=== PATIENT | female | born 1940 | race Caucasian/White ===

== ENCOUNTER 2021-10-25 09:12 | Inpatient (IN) | payer OTHER, BC ==
[2021-10-25] VITALS (11 sets, daily range): BP systolic 84–116; BP diastolic 41–61
[~2021-10-25] VITALS: Ht 154.9 cm; Wt 57.2 kg
--- NOTE | 2021-10-25 09:12 | NUR ---
(7444) RECEIVED FROM EMT TRANSFERRED FROM [facility] TO [facility] ER-1 CONTINUED WITH SUPPLEMENTAL OXYGEN AT 15 LPM VIA NON REBEREATHER ASSESSMENT DONE
--- NOTE | 2021-10-25 09:15 | NUR ---
81 y/o F BIBA from [facility] for increased ALOC, productive cough and SOB. Per EMS, patient tested + COVID 1 week ago and baseline O2 at 88%, placed on 15L via non-rebreather with improvement to 95%. Patient presented hypotensive 88/64 and received 200mL NS 0.9% on scene with improvement to BP. Upon arrival, patient with BP 116/41. EMS BS 146. EMS states baseline GCS 14 but responsive to painful stimuli since this morning. Patient with diaper, full code / taken off hospice today. Lung landis rhonchi. Unable to obtain remaining assessment d/t presentation. PMH: dementia, renal failure, HTN hypothyroidis, HLD, Alzheimers, Meds: see list A: sulfa, depakote, halperidol
--- NOTE | 2021-10-25 09:18 | NUR ---
BRODIE BURNS ERMStephen HHN THERAPY WITH ALBUTEROL 5mg AND ATROVENT 0.5mg
--- NOTE | 2021-10-25 09:20 | NUR ---
RT at bedside for neb tx
--- NOTE | 2021-10-25 09:23 | NUR ---
HHN THERAPY AND RESPIRATORY DRUGS GIVEN ORDERED
[2021-10-25] MEDS ORDERED: NACL 0.9% 1,000 ML IV ONE ×2 (09:25→11:10)
[2021-10-25] MEDS ORDERED: IPRATROPIUM 0.02% 0.5 MG/2.5 ML NEBU INH ONE (09:25)
--- NOTE | 2021-10-25 09:25 | NUR ---
ENDORSED BEDSIDE REPORT TO [facility] RN FOR CONTINUITY OF CARE. VSS. NO S/S ACUTE DISTRESS AT THIS TIME.
--- NOTE | 2021-10-25 09:33 | NUR ---
RAD at bedside
[2021-10-25] MEDS ORDERED: ALBUTEROL 0.083% 2.5 MG/3 ML NEBU INH ONE (09:35)
[2021-10-25] MEDS ORDERED: PIPERACILLIN/TAZOBACTAM 3.375 GM in DEXTROSE 5% 50 ML IV ONE (10:00)
--- NOTE | 2021-10-25 10:00 | NUR ---
Lab at bedside
--- NOTE | 2021-10-25 10:03 | NUR ---
EMT at bedside for EKG
--- NOTE | 2021-10-25 10:04 | NUR ---
RSV, influenza, COVID dago swab collected, handed to CPT Wilman at ER bedside
[2021-10-25] MEDS ORDERED: PIPERACILLIN/TAZOBACTAM 3.375 GM VIAL IV ONE (10:48)
--- NOTE | 2021-10-25 11:10 | NUR ---
Family at bedside
--- NOTE | 2021-10-25 11:10 | NUR ---
Daughter, Bessy [phone] responsible constitution party.
[2021-10-25 11:14] LABS: ALBUMIN 2.5 g/dL (3.4-5.0); ANION GAP 22.2 (8-16); ASPARTATE AMINOTRANSFERASE 86 U/L (15-37); CARBON DIOXIDE 21.7 mmol/L (21-32); CHLORIDE 109 mmol/L (98-107); GLUCOSE 115 mg/dL (74-106); POTASSIUM 4.9 mmol/L (3.5-5.1); SODIUM SERUM 148 mmol/L (136-145); TOTAL BILIRUBIN 0.5 mg/dL (0.0-1.0)
[2021-10-25 11:17] LABS: LACTATE DEHYDROGENASE 253 U/L (81-234)
[2021-10-25 11:22] LABS: RSV NEGATIVE (NEGATIVE)
[2021-10-25 11:24] LABS: CREATININE 5.9 mg/dL (0.6-1.3); UREA NITROGEN, BLOOD 140 mg/dL (7-18)
[2021-10-25] MEDS ORDERED: ACETAMINOPHEN 160 MG/5 ML UDC PO ONE (11:35)
[2021-10-25] MEDS ORDERED: OSELTAMIVIR PHOSPHATE 75 MG CAP PO ONE (11:35)
--- NOTE | 2021-10-25 11:40 | NUR ---
Hold PO meds d/t aspiration risk per Dr. Yoon
[2021-10-25 11:56] LABS: PROTHROMBIN TIME 9.3 secs (10.8-13.4)
[2021-10-25 12:17] LABS: BASOPHILS # (AUTO) 0.1 K/uL (0.00-0.22); BASOPHILS % (AUTO) 0.3 % (0.0-2.0); HEMATOCRIT 34.5 % (36-48); LYMPHOCYTES # (AUTO) 6.7 K/uL (2.5-16.5); LYMPHOCYTES % (AUTO) 15.2 % (20.5-51.1); MEAN CORPUSCULAR HEMOGLOBIN 30 pg (27-31); MEAN CORPUSCULAR HGB CONC 32 g/dL (33-37); MEAN CORPUSCULAR VOLUME 93.5 fL (80-94); MONOCYTES # (AUTO) 8.4 K/uL (0.8-1.0); MONOCYTES % (AUTO) 19.2 % (1.7-9.3); NEUTROPHILS # (AUTO) 28.6 K/uL (1.8-7.7); NEUTROPHILS % (AUTO) 65.3 % (42.2-75.2); PLATELET COUNT (AUTO) 165 K/uL (140-450); RED BLOOD CELL COUNT(AUTO) 3.69 MIL/uL (4.20-5.40)
[2021-10-25] MEDS ORDERED: guaiFENesin DM 200/20 MG-10 ML 10 ML UDC PO PRN (12:25)
[2021-10-25] MEDS ORDERED: KETOROLAC 15 MG/ML VIAL IVP ONE (12:25)
[2021-10-25] MEDS ORDERED: ONDANSETRON 8 MG in NACL 0.9% 50 ML IV PRN (12:25)
[2021-10-25] MEDS ORDERED: ONDANSETRON 4 MG/2 ML VIAL IM/IVP PRN (12:25)
[2021-10-25] MEDS ORDERED: KCL 20 MEQ/WATER INJ PREMIX 200 ML IV PRN (12:25)
[2021-10-25] MEDS ORDERED: VANCOMYCIN PER PHARMACY MC PRN (12:45)
--- NOTE | 2021-10-25 13:01 | NUR ---
Dr. Quintero is evaluating patient at bedside.
[2021-10-25] MEDS ORDERED: NOREPINEPHRINE 4 MG in DEXTROSE 5% 250 ML IV PRN (13:05)
--- NOTE | 2021-10-25 13:15 | NUR ---
# 16 FR Stone catheter with 10 ml utilizing sterile technique. Immediate return of 75ml yellow/clear urine noted. Bedside drainage bag placed below level of bladder. Urine sample collected and sent to lab. Pt tolerated procedure well.
[2021-10-25] MEDS ORDERED: NOREPINEPHRINE 4 MG/4 ML VIAL IV ONE (13:18)
[2021-10-25 13:24] LABS: C-REACTIVE PROTEIN QUANT 5.2 mg/dL (0.0-0.9)
--- NOTE | 2021-10-25 13:25 | NUR ---
Levophed initiated @ 2mcg/min BP 80/35.
--- NOTE | 2021-10-25 13:27 | NUR ---
1327 column for Levophed spreadsheet vital signs entered in error. Levophed 4mg initiated @ 1325 @ 2mcg/min.
--- NOTE | 2021-10-25 13:29 | NUR ---
Lab at bedside
[2021-10-25 13:35] LABS: APPEARANCE,URINE HAZY (CLEAR); BILIRUBIN,URINE 1+ (NEGATIVE); BLOOD, URINE NEGATIVE (NEGATIVE); COLOR,URINE YELLOW (YELLOW); LEUKOCYTE ESTERASE ,URINE NEGATIVE (NEGATIVE); NITRITE, URINE NEGATIVE (NEGATIVE); UGLUCOSE NEGATIVE (NEGATIVE)
[2021-10-25 13:41] LABS: WHITE BLOOD COUNT (AUTO) 43.8 K/uL (4.8-10.8)
--- NOTE | 2021-10-25 13:42 | NUR ---
Dr. Yoon is at bedside for central line placement
[2021-10-25] MEDS ORDERED: VANCOMYCIN 1,000 MG in DEXTROSE 5% 250 ML IV SCH (14:00)
--- NOTE | 2021-10-25 14:05 | NUR ---
BP 91/43 MAP 59 HR 72 SpO2 98% on 15L via NRB RR 32 with Levophed 10mcg/min.
[2021-10-25 14:14] LABS: CALCIUM OXALATE CRYSTALS,UR None Seen /HPF (None Seen); RBC,URINE NONE SEEN /HPF (0-5); TRICHOMONAS,URINE None Seen /HPF (None Seen); YEAST,URINE None Seen /HPF (None Seen)
--- NOTE | 2021-10-25 14:14 | NUR ---
Per Dr. Yoon, central line placement OK to use.
[2021-10-25 14:15] LABS: COARSE GRANULAR CASTS,URINE None Seen /LPF (None Seen); FINE GRANULAR CASTS,URINE None Seen /LPF (None Seen); HYALINE CASTS, URINE None Seen /LPF (None Seen); OTHER CASTS, URINE None Seen /LPF (None Seen); OTHER CRYSTALS,URINE None Seen /HPF (None Seen); RED BLOOD CELL CASTS,URINE None Seen /LPF (None Seen); TRIPLE PHOSPHATE CRYSTAL,UR None Seen /HPF (None Seen); URIC ACID CRYSTALS,URINE None Seen /HPF (None Seen); URINE AMORPHOUS URATE 2+ /HPF (None Seen); WAXY CASTS,URINE None Seen /LPF (None Seen)
--- NOTE | 2021-10-25 14:39 | NUR ---
BRODIE BURT; HIGH FLOW NASAL CANNULA; KEEEP SATURATION GREATER THAN 90%; HHN DUONEB Q6 AND Q4 PRN SOB
[2021-10-25] MEDS ORDERED: ALBUTEROL SULFATE/IPRATROPIU 3 ML SOL IH PRN (14:45)
--- NOTE | 2021-10-25 14:45 | NUR ---
Dr. Rosas at bedside. made aware of holding PO meds d/t aspiration risk per Dr. Yoon. Dr. Rosas states to give PO medications; ERMD made aware and will see if pt tolerate.
[2021-10-25] MEDS ORDERED: HALO1TAB99 PO (14:59)
[2021-10-25] MEDS ORDERED: LORA10TA19 PO (14:59)
[2021-10-25] MEDS ORDERED: DONE5TAB6 PO (14:59)
[2021-10-25] MEDS ORDERED: MELO-176 PO (14:59)
[2021-10-25] MEDS ORDERED: FURO-572 PO (14:59)
[2021-10-25] MEDS ORDERED: PROC-62 PO (14:59)
[2021-10-25] MEDS ORDERED: QUET25TA PO (14:59)
[2021-10-25] MEDS ORDERED: MIRT-91 PO (14:59)
[2021-10-25] MEDS ORDERED: SIMV-31 PO (14:59)
[2021-10-25] MEDS ORDERED: CARV6.25 PO (14:59)
[2021-10-25] MEDS ORDERED: LEVO0.0512 PO (14:59)
[2021-10-25] MEDS ORDERED: ZOLP5TAB1 PO (14:59)
[2021-10-25] MEDS: DEXAMETHASONE 4 MG/ML VIAL IVP SCH (15:01)
[2021-10-25] MEDS ORDERED: HYOS-83 PO (15:01)
--- NOTE | 2021-10-25 15:32 | NUR ---
Bedside report given to TAYLOR Valerio.
--- NOTE | 2021-10-25 15:34 | NUR ---
Patient will be admitted to care of Dr. Quintero. Admited to ICU. Will go to room ICU-8. Belongings list completed. Report to TAYLOR Valerio.
--- NOTE | 2021-10-25 15:35 | NUR ---
RECEIVED REPORT FROM ED RNFLORENCIO. PT TRANSFERRED TO ICU BED 8 WITHOUT INCIDENT. ATTACHED TO BEDSIDE MONITOR. PT PRESENTS WITH A RIGHT FEMORAL TRIPLE LUMEN CATHETER INFUSING LEVOPHED AT 16MCG AND VANCOMYCIN AND INDWELLING PARIKH CATHETER. PT HAS BEEN MADE COMFORTABLE IN BED WITH NEW GOWN AND SHEETS PROVIDED.
--- NOTE | 2021-10-25 16:00 | NUR ---
REPORT GIVEN TO TAYLOR AUGUSTINE. ALL CARE TRANSFERRED.
--- NOTE | 2021-10-25 16:00 | NUR ---
RECEIVED REPORT FROM RELL VAZQUEZ FOR CONTINUITY OF CARE.
[2021-10-25] MEDS ORDERED: PIPERACILLIN/TAZOBACTAM 3.375 GM in DEXTROSE 5% 50 ML IV SCH (18:00)
[2021-10-25] MEDS: NOREPINEPHRINE 16 MG in DEXTROSE 5% 250 ML IV PRN (18:25)
--- NOTE | 2021-10-25 18:25 | NUR ---
ADMINISTERED 16MG CONC LEVOPHED BAG AT DOSE RATE OF 20 MCG/MIN, SHANNON YIN RN. WILL CONTINUE TO CLOSELY MONITOR SBP AND MAP.
[2021-10-25] MEDS ORDERED: VASOPRESSIN 20 UNITS in NACL 0.9% 250 ML IV SCH (18:30)
[2021-10-25] MEDS: ALBUTEROL SULFATE/IPRATROPIU 3 ML SOL IH SCH (20:04)
[2021-10-25] MEDS: PIPERACILLIN/TAZOBACTAM 2.25 GM in DEXTROSE 5% 50 ML IV SCH (21:00)
[2021-10-26] VITALS (24 sets, daily range): BP systolic 96–145; BP diastolic 33–89
[2021-10-26] MEDS: ALBUTEROL SULFATE/IPRATROPIU 3 ML SOL IH SCH ×4 (00:39→19:53)
--- NOTE | 2021-10-26 00:54 | NUR ---
PATIENT NOT ALERT SLEEPY CUBAN SPEAKING PATIENT AWAKABLE WHEN TURN. HAS HI FLOW 90% SAT 98% LUNGS DIMINISH .PATIENT NPOEXCEPT MEDS. SINUS ON MONITOR. HAS LEVOPHED INFUSING THROUGH FEMORAL LINE RIGHT. 22 MCG/MIN 98.4 HAS F/C DRAINING DEREK URINE NO DISTRESS AT THIS TIME. PATIENT HAS WRIST RESTRAINTS ON TO BR RENEWED 10/26/21 AT 1600.
[2021-10-26] MEDS ORDERED: PIPERACILLIN/TAZOBACTAM 2.25 GM VIAL IV ONE (04:50)
[2021-10-26] MEDS: PIPERACILLIN/TAZOBACTAM 2.25 GM in DEXTROSE 5% 50 ML IV SCH ×3 (05:00→21:00)
[2021-10-26 05:36] LABS: BASOPHILS # (AUTO) 0.1 K/uL (0.00-0.22); BASOPHILS % (AUTO) 0.1 % (0.0-2.0); EOSINOPHILS # (AUTO) 0.2 K/uL (0-0.4); EOSINOPHILS % (AUTO) 0.3 % (0.0-4.0); HEMATOCRIT 32.8 % (36-48); HEMOGLOBIN 10.4 g/dL (12.0-16.0); LYMPHOCYTES # (AUTO) 14.2 K/uL (2.5-16.5); LYMPHOCYTES % (AUTO) 23.1 % (20.5-51.1); MEAN CORPUSCULAR HEMOGLOBIN 30 pg (27-31); MEAN CORPUSCULAR HGB CONC 32 g/dL (33-37); MEAN CORPUSCULAR VOLUME 93.5 fL (80-94); MONOCYTES # (AUTO) 6.6 K/uL (0.8-1.0); MONOCYTES % (AUTO) 10.8 % (1.7-9.3); NEUTROPHILS # (AUTO) 40.5 K/uL (1.8-7.7); NEUTROPHILS % (AUTO) 65.7 % (42.2-75.2); PLATELET COUNT (AUTO) 190 K/uL (140-450); RED BLOOD CELL COUNT(AUTO) 3.51 MIL/uL (4.20-5.40); RED CELL DISTRIBUTION WIDTH 13.1 % (11.6-13.7)
[2021-10-26 05:41] LABS: ANION GAP 20.7 (8-16); CARBON DIOXIDE 21.2 mmol/L (21-32); CHLORIDE 109 mmol/L (98-107); GLUCOSE 204 mg/dL (74-106); POTASSIUM 4.9 mmol/L (3.5-5.1); SODIUM SERUM 146 mmol/L (136-145)
[2021-10-26 05:53] LABS: WHITE BLOOD COUNT (AUTO) 61.6 K/uL (4.8-10.8)
[2021-10-26 05:59] LABS: CREATININE 5.7 mg/dL (0.6-1.3); UREA NITROGEN, BLOOD 140 mg/dL (7-18)
--- NOTE | 2021-10-26 07:10 | NUR ---
RECEIVED PT ALERT AND ORIENTED X1, SOFT SPOKEN. ON HIGH FLOW NASAL CANNULA 20L 90%. SINUS RHYTHM ON MONITOR. ACTIVE BOWEL SOUNDS. PARIKH CATHETER INTACT AND DRAINING TO BSD. CENTRAL LINE ON RIGHT FEMORAL TRIPLE LUMEN INTACT AND PATENT INFUSING LEVOPHED @16MCG/MIN, AND NS @TKO. BILAT SOFT WRIST RESTRAINTS IN PLACE. SAFETY PRECAUTIONS IN PLACE.
--- NOTE | 2021-10-26 08:08 | NUR ---
RT AT BEDSIDE. DECREASED HIGH FLOW TO 20L 65%. O2 SAT 96%.
[2021-10-26] MEDS: NOREPINEPHRINE 16 MG in DEXTROSE 5% 250 ML IV PRN (08:44)
--- NOTE | 2021-10-26 08:45 | NUR ---
SEEN AND EXAMINED BY DR. BURT. DAUGHTER AT BEDSIDE. ALL QUESTIONS ANSWERED.
[2021-10-26] MEDS: PANTOPRAZOLE 40 MG INJ VIAL IVP SCH (08:57)
[2021-10-26] MEDS: DEXAMETHASONE 4 MG/ML VIAL IVP SCH (08:59)
[2021-10-26] MEDS ORDERED: VANCOMYCIN 750 MG in DEXTROSE 5% 250 ML IV SCH (09:00)
--- NOTE | 2021-10-26 09:07 | NUR ---
PATIENT HAS BEEN SCREENED AND CATEGORIZED HIGH NUTRITION RISK. PATIENT WILL BE SEEN WITHIN 1-2 DAYS OF ADMISSION. REFERRAL RECEIVED FOR DYSPHAGIA IGNACIA COLON RD
--- NOTE | 2021-10-26 09:30 | NUR ---
SEEN AND EXAMINED BY DR. CULVER. NO NEW ORDERS.
[2021-10-26] MEDS: OSELTAMIVIR PHOSPHATE 30 MG CAP PO SCH (09:45)
--- NOTE | 2021-10-26 13:22 | NUR ---
P.T. NOTES P.T. EVAL COMPLETED; REFER TO EVAL FOR DETAILS.
--- NOTE | 2021-10-26 14:30 | NUR ---
SEEN AND EXAMINED BY DR. CHAPMAN. NO NEW ORDERS.
--- NOTE | 2021-10-26 16:18 | NUR ---
DC PLANNIN YRS OLD FEMALE PATIENT WAS ADMITTED FROM HOME WITH A DX OF SEPSIS. PATIENT HAS A HX OF DEMENTIA RENAL FAILURE HYPOTHYROIDISM AND HLD. CXR SHOWED RIGHT BASAL PNEUMONIA OR EDEMA. RAPID COVID TEST POSITIVE INFLUENZA POSITIVE. WBC 43.8, 61.6. ON HIGH FLOW 20L FIO2 65%. URINE AND SPUTUM CULTURE PENDING. ADMINISTERED IVF, LEVOPHED DRIP , ZOSYN AND VANCO IV ABX. CONSULTED WITH NEPHRO PULMO AND ID. DC PLAN PER PT RESPOND TO THE TREATMENT. CM TO FOLLOW Addendum: 10/30/21 at 1039 by Eulalia Foley RN DC PLANNING: WBC UP TRENDING HIGHER 132.3 , HEMODIALYSIS / ON HF AT 55% FIO2 , ON LEVOPHED DRIP CONTINUED ZOSYN HEMO-ONC DR PITTS SEEN PATIENT DISCUSSED WITH PT'S DAUGHTER AND PLANNED TO CONTINUE SYMPTOM MANAGEMENT. PULMO AND ID FOLLOWING. OVERALL PROGNOSIS REMAINS GUARDED. CM TO FOLLOW Addendum: 11/01/21 at 1205 by Eulalia Foley RN DC PLANNING: REPEAT COVID TEST POSITIVE. WBC 132.3 ON HFNC FIO2 35% CONTINUE CURRENT TREATMENT, ON ZOSYN AND LEVOPHED DRIP. ID, NEPHRO PULMO FOLLOWING. DC PLAN TO DOWN GRADE TO TELE. CM TO FOLLOW Addendum: 11/03/21 at 1102 by Eulalia Foley RN DC PLANNING: RECEIVED A CALL FROM PT'S DAUGHTER NAME LALA GAMBOA [phone] STATED SHE SPOKE WITH DR BURT REGARDING HER MOM'S CONDITIONS AND POOR PROGNOSIS AND CONSIDER TO HAVE HOSPICE. CM DISCUSSED REGARDING HEMODIALYSIS PER DAUGHTER SHE WANTED HER MOM TO HAVE DIALYSIS WHILE SHE IS IN THE HOSPITAL AND AFTER THAT TO DISCONTINUE DIALYSIS. SHE IS UNABLE TO TAKE HER HOME BECAUSE SHE IS WORKING AND NO ONE TO TAKE CARE OF HER. SHE IS GATHERING ALL THE INFORMATION ABOUT HOSPICE BUT SHE WANTED ONE THE HOSPITALS REFER TO HER. CALLED [facility] PROVIDE NAM AND NUMBER OF LALA AND FAXED ALL THE INFORMATION TO [phone] CM TO FOLLOW Addendum: 11/03/21 at 1632 by Eulalia Foley RN DC PLANNING: RECEIVED A CALL FROM LALA MO'S DAUGHTER STATED CANCELING THE HOSPICE AND WANTED HER MOM TO GO TO SNF. NOTIFIED DR CULVER. CANCELED HOSPICE PER DAUGHTER WANTED HER MOM TO GO TO A [facility]. DC PLAN TO GO TO SNF WHEN STABLE. CM TO FOLLOW Addendum: 11/06/21 at 1139 by Eulalia Foley RN DC PLANING: CALLED CHELY'S DAUGHTER LALA [phone] LEFT A MESSAGE REGARDING DC PLAN. PER DR CHAVES PT CAN HAVE OUTPT DIALYSIS WITH [facility]. CALLED [facility] [phone] AND FAXED ALL THE PAPERWORK TO [phone] TO SCHEDULE OUT PATIENT DIALYSIS. CM TO FOLLOW Addendum: 11/06/21 at 1625 by Eulalia Foley RN DC PLANNING: CALLED DAUGHTER LORENA STATED STILL HAS NOT DECIDED FOR HER MOM TO GO TO REHAB OR TO CONTINUE HEMODIALYSIS SHE IS AWAITING FOR HER FAMILY MEMBER TO DISCUSS REGARDING THE DIALYSIS. STATED WILL CALL BACK TOMORROW. RECEIVED A CALL FROM [facility] CHAIR TIME [facility], AT 0830AM. CM TO FOLLOW Addendum: 11/08/21 at 1152 by Eulalia Foley RN DC PLANNING: CALLED PATIENT'S DAUGHTER SPOKE WITH PREETI STATED STILL CAN NOT MAKE A DECISION FOR HER MOM TO SIGN HOSPICE OR SNF. CASE WAS DISCUSSED SATURDAY TO LOOK FOR A PLACE AROUND HER AREA. PREETI STATED STILL HARD FOR HER TO DECIDE HOW EVER SHE IS ASKING TO TALK TO CONTROL TECHNICIAN AND ATTENDING. NOTIFIED DR CULVER TO SPEAK WITH HER PREETI SAID NO ONE CALL HER. NOTIFIED DR JUAREZ TO SPEAK WITH HER. DC PLAN AWAITING FOR MD RESPONSE. CM TO FOLLOW Addendum: 11/08/21 at 1501 by Eulalia Foley RN DC PLANNING: RECEIVED A CALL FROM PREETI STATED SHE WANTED HER MOM ANAHI WITH [facility]. CALLED A HOSPICE [phone] SPOKE WITH MARINE (ADMIN) ASKED THE PAPER WORK TO BE FAXED TO [phone]. HOWEVER PREETI TOLD THEM NOT TO DELIVER THE EQUIPMENT UNTIL TOMORROW AND CAREGIVER AVAILABLE ON SATURDAY. JACQUI DISCUSSED WITH PREETI AND EXPLAINED THAT WE HAVE A DC ORDER AND HAS TO GO TODAY OR TOMORROW. PREETI DISAGREED WITH THE DC AND INSISTING TO TALK TO MD. DR JUAREZ CALLED HER TWICE AND EXPLAINED, PT IS STABLE FOR DISCHARGE AND ANSWER ALL THE QUESTION. JACQUI OFFERED HER TO [facility] PROVIDE THE NUMBER [phone]. HOWEVER REFUSED TO CALL AND INSIST NOT TO DC HER. CM TO FOLLOW Addendum: 11/08/21 at 1606 by Eulalia Foley RN DC PLANNING: RECEIVED A CALL FROM LALA'S RAISSA PERALTA STATED PT CAN NOT COME TO HIS HOUSE THEY ARE NOT READY TO TAKE CARE OF HER UNTIL THEY GET HELP AND STATED SHE IS NOT STABLE FOR DISCHARGE AND REQUESTING TO SENT HER TO [facility] CALLED [facility] WILLING TO TAKE HER BACK CAN GO TO ROOM 13A HOW [facility] IS RESPONSIBLE FOR TRANSPORT FOR DIALYSIS. CALLED BACK MR HAJI CHANGED HIS MIND AND DOESN'T WANT HER TO GO BACK TO [facility]. HE STATED HE WILL TALK TO THE HOSPICE COMPANY TO HELP. CM TO FOLLOW Addendum: 11/08/21 at 1703 by Eulalia Foley RN DC PLANNING: CM MET [facility] NURSE FELIPE STATED SHE MET THE HOSPICE CRITERIA AND WILL MEET PT'S DAUGHTER AT 6 PM AND WILL ARRANGE THE EQUIPMENT TO BE DELIVERED AT 10:00 AM TOMORROW. PER [employer] MR HAJI REQUESTING THE MEDICARE NUMBER FAXED THROUGH FRONT OFFICE SECRETARY NUMBER TO [phone] CM TO FOLLOW Addendum: 11/09/21 at 1136 by Eulalia Foley RN DC PLANNING: RECEIVED A CALL FROM HARMONY TRENT WITH [facility], SHE PROVIDE THE AND EMR JONAS:[id number] FAXED ALL THE REQUEST TO HARMONY [phone]. RECEIVED A CALL FROM TRISTAN STATED SHE APPEAL THE DISCHARGE. JACQUI EXPLAINED THE PROTOCOL,RULES AND REGULATIONS OF MEDICARE THAT TAKES 24 HRS TO REVIEW AND WILL CALL HER. LALA VERBALIZED UNDERSTANDING. DC PLAN AWAITING FOR [facility] RESPONSE. CM TO FOLLOW
--- NOTE | 2021-10-26 16:45 | NUR ---
10/26/21 RD INITIAL ASSESSMENT COMPLETED PLEASE REFER TO NUTRITION ASSESSMENT UNDER CARE ACTIVITY FOR ESTIMATED NUTRITIONAL NEEDS. 1. RECOMMEND RENAL MECHANICAL SOFT DIET TOLERATED 2. RECOMMEND NEPRO BID PER RD PROTOCOL 3. MONITOR PO INTAKE -IF PT UNABLE TO TOLERATE, DOWNGRADE TEXTURE OR CONSULT ST -IF PT REQUIRES TF, RECOMMEND NEPRO @ 40 ML/HR WITH FWF 100 ML Q6H OR PER MD 4. RD TO FOLLOW-UP 2-3 DAYS, HIGH RISK IGNACIA COLON RD
--- NOTE | 2021-10-26 17:00 | NUR ---
DR. MAIN AT BEDSIDE EXAMINING PT. DR. MAIN SPOKE WITH DAUGHTER LORENA ON TELEPHONE REGARDING DIALYSIS. RISKS AND BENEFITS EXPLAINED. DAUGHTER CONSENTED TO CATHETER INSERTION AND HEMODIALYSIS.
[2021-10-26] MEDS ORDERED: DEXTROSE 5% 1,000 ML IV SCH (17:20)
[2021-10-26] MEDS: NACL 0.9% 250 ML IV SCH ×4 (17:44→20:35)
--- NOTE | 2021-10-26 18:00 | NUR ---
URINE COLLECTED AND WALKED TO LAB.
[2021-10-26 18:52] LABS: MAGNESIUM 2.9 mg/dL (1.8-2.4); PHOSPHORUS 5.3 mg/dL (2.5-4.9)
--- NOTE | 2021-10-26 19:25 | NUR ---
ENDORSED TO FISH SEINER NURSE IRIS FOR CONTINUITY OF CARE.
[2021-10-26] MEDS ORDERED: NOREPINEPHRINE 4 MG/4 ML VIAL IV ONE (23:28)
--- NOTE | 2021-10-26 23:33 | NUR ---
PATIENT AWAKE CONFUSE WITH HI FLOW AT 65 % 20 LIT.SAT 94 %.LUNGS DIMINISH SINUS ON MONITOR.ON LEVOPHED 14 MCG 13 ML. TEMP98.7 F/C DRAINING YELLOW URINE.PATIENT ATE A LITTLE APPLE SAUCE..
[2021-10-27] VITALS (28 sets, daily range): BP systolic 90–154; BP diastolic 30–85
[2021-10-27] MEDS: ALBUTEROL SULFATE/IPRATROPIU 3 ML SOL IH SCH ×5 (00:29→19:00)
[2021-10-27] MEDS: PIPERACILLIN/TAZOBACTAM 2.25 GM in DEXTROSE 5% 50 ML IV SCH ×3 (05:00→22:12)
[2021-10-27] MEDS: NOREPINEPHRINE 16 MG in DEXTROSE 5% 250 ML IV PRN (05:30)
[2021-10-27 05:42] LABS: ANION GAP 20.4 (8-16); CARBON DIOXIDE 18.9 mmol/L (21-32); CHLORIDE 113 mmol/L (98-107); CREATININE 4.8 mg/dL (0.6-1.3); GLUCOSE 126 mg/dL (74-106); POTASSIUM 4.3 mmol/L (3.5-5.1); SODIUM SERUM 148 mmol/L (136-145); UREA NITROGEN, BLOOD 148 mg/dL (7-18)
--- NOTE | 2021-10-27 07:20 | NUR ---
Received pt awake, alert & oriented x1. On high flow nasal cannula @ 20L with FiO2 @65%. Sinus rhythm on monitor. Bowel sounds hypoactive x4 quads. Stone catheter intact and draining to BSD. Bilat soft wrist restraints in place. Bilat heel protectors in place. Right femoral triple lumen central line intact and infusing Levophed @14mcg/min. Safety precautions in place.
[2021-10-27] MEDS: DEXAMETHASONE 4 MG/ML VIAL IVP SCH (08:13)
[2021-10-27] MEDS: OSELTAMIVIR PHOSPHATE 30 MG CAP PO SCH (08:13)
[2021-10-27] MEDS: PANTOPRAZOLE 40 MG INJ VIAL IVP SCH (08:13)
[2021-10-27 08:25] LABS: HEMATOCRIT 31.3 % (36-48); MEAN CORPUSCULAR HEMOGLOBIN 30 pg (27-31); MEAN CORPUSCULAR HGB CONC 32 g/dL (33-37); MEAN CORPUSCULAR VOLUME 92.9 fL (80-94); PLATELET COUNT (AUTO) 186 K/uL (140-450); RED BLOOD CELL COUNT(AUTO) 3.37 MIL/uL (4.20-5.40); RED CELL DISTRIBUTION WIDTH 12.8 % (11.6-13.7)
[2021-10-27 08:31] LABS: WHITE BLOOD COUNT (AUTO) 56.5 K/uL (4.8-10.8)
--- NOTE | 2021-10-27 09:00 | NUR ---
DAUGHTER LORENA OUTSIDE ROOM STANDING BY DOOR VISITING PT. INFORMED DAUGHTER REGARDING UPDATED PT POSITIVE MRSA NARES REPORT.
--- NOTE | 2021-10-27 09:10 | NUR ---
HEPARIN 5000 UNITS NOT GIVEN DUE TO POSSIBLE PERMA CATH INSERTION TODAY.
--- NOTE | 2021-10-27 09:21 | NUR ---
SEEN AND EXAMINED BY DR. CULVER. NO NEW ORDERS AT THIS TIME. Addendum: 10/27/21 at 0929 by Yvette Castro RN INFORMED DR. CULVER REGARDING HIGH WBC AND POSITIVE MRSA OF NARES. NO NEW ORDERS.
[2021-10-27 09:47] LABS: BASOPHILS % (MANUAL) 0 % (0-2); EOSINOPHILS % (MANUAL) 0 % (0-4); LYMPHOCYTES % (MANUAL) 26 % (20-46); MONOCYTES % (MANUAL) 12 % (5-12)
[2021-10-27] MEDS: DOCUSATE SODIUM 100 MG GELCAP PO PRN (09:56)
--- NOTE | 2021-10-27 12:10 | NUR ---
SEEN AND EXAMINED BY DR. MAIN. NEW ORDERS RECEIVED FOR CONSULT WITH DR. SIM FOR MARYANN CATH PLACEMENT, PT/PTT LAB, AND CHEST XRAY. CALLED DAUGHTER LORENA AND GAVE UPDATE. ALL QUESTIONS ANSWERED.
--- NOTE | 2021-10-27 12:20 | NUR ---
WOUND CARE EVALUATION NOTE: WOUND ASSESSMENT DONE ON THIS 81 Y/O PT ADMITTED WITH COVID POSITIVE AND DTI TO BILATERAL HEELS. PT. IS FROM [facility] WITH INCREASED ALOC. PAST MEDICAL HX INCLUDES PAST MEDICAL HISTORY OF ALZHEIMER'S DEMENTIA, COPD AND HYPERTENSION. PT. RECENTLY DISCONTINUE WITH HOSPICE CRE. ALL ABOVE INFORMATION OBTAINED FROM ADMISSION H&P. PT. ADMITTED WITH LOW TOBY SCALE AND MULTIPLE DTI. PLAN OF CARE DISCUSSED WITH PRIMARY RN. INTEGUMENTARY: -RIGHT HEEL DTI 2.5X2CM 100% MAROON, MUSHY, CONG-WOUND BLANCHABLE REDNESS SKIN INTACT -LEFT HEEL DTI 3X3CM, 100% MAROON, MUSHY, CONG-WOUND BLANCHABLE REDNESS SKIN INTACT RECOMMENDATIONS: -APPLY SKIN PREP TO RIGHT AND LEFT HEELS BID AND PHARMACY LABORATORY TECHNICIAN, OFFLOADING WITH HEEL RAISERS -APPLY FORM DRESSING TO SACRALCOCCYX Q3 DAYS AND PRN IF SOILING PREVENTION -POSITIONING: TURN AND REPOSITION PATIENT Q 2H OR SOONER USE PILLOWS TO KEEP BONY PROMINENCES FROM DIRECT CONTACT WITH SURFACES USE REPOSITIONING WEDGES TO PROVIDE 30-DEGREE ANGLE FOR SIDE LYING POSITIONS OFFLOADING OR FOAM DRESSING TO ALL TUBING TO PREVENT MEDICAL DEVICES RELATED PRESSURE INJURY -RE-EVALUATING AND MANAGING INCONTINENCE MONITOR SKIN CONDITION DURING POSITION CHANGE DO NOT MASSAGE REDNESS, BONY PROMINENCES FREQUENT CONG-CARE AND PROVIDE BARRIER CREAMS PRN IF SOILING MOISTURE CONTROL BY OFFER BED BORJAS/URINAL /ABSORBENT PAD TO WICK AND HOLD MOISTURE KEEP SKIN DRY AND PROTECT FROM FRICTION -MANAGE FRICTION/SHEAR/MOBILITY KEEP HOB AT THE LOWEST LEVEL OF ELEVATION NO MORE THAN 30 DEGREES UNLESS OTHERWISE CONTRAINDICATED USE LIFT SHEET OR TRANSFER DEVICE TO MOVE PATIENT AND PREVENT LATERAL SHEER. PROTECT HEELS, ELBOWS BONY PROMINENCES WITH SKIN BERRIES OR FOAM DRESSING IF EXPOSED TO FRICTION OFFLOAD BILATERAL HEELS BY PLACING PILLOWS UNDER CALVES AT ALL TIMES, UNLESS OTHERWISE CONTRAINDICATED -PRESSURE REDISTRIBUTION SURFACE THERAPY DEREK ISOFLEX MATTRESS -NUTRITION: PLEASE FOLLOW RD RECOMMENDATIONS AND OFFER NUTRITION SUPPLEMENTS IF ORDERED.
[2021-10-27 12:44] LABS: PROTHROMBIN TIME 10.1 secs (10.8-13.4)
[2021-10-27] MEDS: SODIUM BICARBONATE 8.4% 50 MEQ in DEXTROSE 5% 1,000 ML IV SCH (13:27)
--- NOTE | 2021-10-27 13:50 | NUR ---
PHYSICAL THERAPIST AT BEDSIDE.
--- NOTE | 2021-10-27 14:48 | NUR ---
SEEN AND EXAMINED BY DR. CHAPMAN. REPORTED MRSA OF NARES AND HIGH WBC. NO NEW ORDERS AT THIS TIME.
--- NOTE | 2021-10-27 14:49 | NUR ---
CHEST XRAY BEING DONE AT BEDSIDE.
--- NOTE | 2021-10-27 15:50 | NUR ---
FOUND PT DESATURATING 87%. LITER FLOW INCREASED TO 25L/M AND FIO2 INCREASED TO 70%. PRN BREATHING TREATMENT TO BE ADMINISTERED.
--- NOTE | 2021-10-27 16:59 | NUR ---
REPORTED SPUTUM CULTURE TO DR. CHAPMAN. NO NEW ORDERS.
--- NOTE | 2021-10-27 17:00 | NUR ---
SEEN AND EXAMINED BY DR. BURT. PER DR. BURT, MAY START VASOPRESSORS IF NEEDED.
[2021-10-27 17:03] LABS: CREATININE,URINE RANDOM 96 mg/dL (30-125); URINE SODIUM, RANDOM 33 mmol/l (40-220)
--- NOTE | 2021-10-27 19:33 | NUR ---
ENDORSED TO MANAGER COLLECTION NURSE TURNER FOR CONTINUITY OF CARE.
--- NOTE | 2021-10-27 20:30 | NUR ---
@1930 Pt report received at bedside from Yvette VAZQUEZ. Pt was positive for COVID on admission as at this time on isolation eyes open tracking but confused disoriented inappropriate verbal utterances more incoherent unable to follow directions moves all extremities, tachypneic oxygenation via high flow nasal canula 25lters/FIO2 70% tolerating well no sign of distress,vitals signs stable HR in 70's sinus rhythm, ongoing Levophed drip,afebrile, education on care plan but unable to comprehend due to dementia cognitively impaired, spivey care to gravity below bladder as at this time will continue to monitor and treat as per care plan. Total assistance with feeding at the bedside and she ate 70% of her meal and drank all Nepro supplement. Bed in low position bed in low position rails up x2 and fall precaution, enhanced monitoring for safety.
--- NOTE | 2021-10-27 22:00 | NUR ---
Pt's daughter called for updates, education on care plan, question about the hemodialysis, via video chats at the bedside for her to see pt's condition vitals signs and pt's response. She was grateful and appreciates efforts to make this happen.
--- NOTE | 2021-10-27 23:15 | NUR ---
Dr Barrie Monk called, gave orders in preparation for the insertion of the HEMODIALYSIS CATHETER at the bedside requested for all apparatus/tools needed and he will be here in AM @0700 10/28/21. Consent already signed by patient's daughter. Addendum: 10/28/21 at 0657 by Agency 01 TAYLOR VAZQUEZ IT WAS DR LENY MONK PLEASE NOTE CORRECTION THANK YOU.
[2021-10-28] VITALS (30 sets, daily range): BP systolic 76–163; BP diastolic 36–85
[2021-10-28] MEDS: ALBUTEROL SULFATE/IPRATROPIU 3 ML SOL IH SCH ×3 (01:37→19:00)
[2021-10-28] MEDS: SODIUM BICARBONATE 8.4% 50 MEQ in DEXTROSE 5% 1,000 ML IV SCH ×2 (02:39→15:42)
--- NOTE | 2021-10-28 04:30 | NUR ---
Complete bed bath with CHG skin checked no break down but bruise noted on the right upper arm no open wound tolerated well ongoing support, continuous reorientation to the unit education on care plan passive to non attention noted bedside monitoring for safety.
[2021-10-28 06:37] LABS: HEMATOCRIT 31.4 % (36-48); HEMOGLOBIN 9.8 g/dL (12.0-16.0); MEAN CORPUSCULAR HEMOGLOBIN 29 pg (27-31); MEAN CORPUSCULAR HGB CONC 31 g/dL (33-37); MEAN CORPUSCULAR VOLUME 92.9 fL (80-94); PLATELET COUNT (AUTO) 204 K/uL (140-450); RED BLOOD CELL COUNT(AUTO) 3.38 MIL/uL (4.20-5.40); RED CELL DISTRIBUTION WIDTH 13.3 % (11.6-13.7)
[2021-10-28 06:47] LABS: ANION GAP 18.7 (8-16); CARBON DIOXIDE 21.5 mmol/L (21-32); CHLORIDE 108 mmol/L (98-107); GLUCOSE 194 mg/dL (74-106); POTASSIUM 4.2 mmol/L (3.5-5.1); SODIUM SERUM 144 mmol/L (136-145)
[2021-10-28 06:56] LABS: CREATININE 4.5 mg/dL (0.6-1.3); UREA NITROGEN, BLOOD 157 mg/dL (7-18)
--- NOTE | 2021-10-28 07:15 | NUR ---
REPORT RECEIVED FROM JOHNNY VAZQUEZ, ALL CARES ASSUMED. PT RESTING IN BED, AWAKE AND CONFUSED.
--- NOTE | 2021-10-28 07:25 | NUR ---
Change of shift report given Ailin RN at the bedside as at this time vitals signs stable afebrile awake confused no changes in care plan and pt's condition.
[2021-10-28] MEDS: PIPERACILLIN/TAZOBACTAM 2.25 GM in DEXTROSE 5% 50 ML IV SCH ×3 (07:31→21:53)
--- NOTE | 2021-10-28 07:45 | NUR ---
DR MONK AT BEDSIDE TO INSERT DIALYSIS CATHETER.
--- NOTE | 2021-10-28 07:57 | NUR ---
CRITICAL LAB VALUE WBC 71.3 CALL FROM LAB [address] CHAPMAN VIA TELEPHONE - NO NEW ORDERS AT THIS TIME. WILL ROUND ON PATIENT TODAY.
[2021-10-28 07:58] LABS: WHITE BLOOD COUNT (AUTO) 71.3 K/uL (4.8-10.8)
--- NOTE | 2021-10-28 08:09 | NUR ---
CALLED ALEXANDRA TO NOTIFY OF DIALYSIS ORDER FOR TODAY. ALEXANDRA VERIFIED.
[2021-10-28 08:30] LABS: BASOPHILS % (AUTO) 0.2 % (0.0-2.0); MONOCYTES % (AUTO) 16.2 % (1.7-9.3); NEUTROPHILS % (AUTO) 47.6 % (42.2-75.2); PLATELET COUNT,MANUAL 197 K/uL (150-450)
[2021-10-28 08:31] LABS: BASOPHILS # (AUTO) 0.1 K/uL (0.00-0.22); LYMPHOCYTES # (AUTO) 25.9 K/uL (2.5-16.5); MONOCYTES # (AUTO) 11.7 K/uL (0.8-1.0); MONOCYTES % (MANUAL) 15 % (5-12); NEUTROPHILS # (AUTO) 34.2 K/uL (1.8-7.7)
[2021-10-28 08:32] LABS: LYMPHOCYTES % (MANUAL) 42 % (20-46); METAMYELOCYTES % 1 % (0-0)
[2021-10-28] MEDS: PANTOPRAZOLE 40 MG INJ VIAL IVP SCH (08:52)
[2021-10-28] MEDS: DEXAMETHASONE 4 MG/ML VIAL IVP SCH (08:52)
[2021-10-28] MEDS: OSELTAMIVIR PHOSPHATE 30 MG CAP PO SCH (08:53)
--- NOTE | 2021-10-28 10:07 | NUR ---
DR. JUAREZ ROUNDING AT BEDSIDE, NO NEW ORDERS AT THIS TIME.
[2021-10-28] MEDS: guaiFENesin 600 MG TABER PO SCH ×2 (12:09→21:54)
--- NOTE | 2021-10-28 16:01 | NUR ---
At approximately 1418, this RN was asked by dialysis nurse to assess pt after heart rate decreased to 50's. Pt appeared pale, diaphoretic and cyanotic around the lips. Respiratory rate slowed, heart rate increased to 150's and pt was not responsive to painful stimuli. At approximately 1423 heart rate returned to 70's, pt appeared pink and became responsive. Dr. Carpio notified. STAT EKG done, CT ordered. Addendum: 10/28/21 at 1747 by Agency 07 RN RN BGL [id number].
--- NOTE | 2021-10-28 17:47 | NUR ---
PT AWAKE, ALERT AND ORIENTED AT BASELINE. MINIMAL RIGHT SIDED FACIAL DROOP PERSISTS. PT SPEECH IS CLEAR. VSS.
--- NOTE | 2021-10-28 19:15 | NUR ---
@1915 Change of shift report received from Ailin VAZQUEZ at bedside, there was an incidence as per report that pt have facial droop, loss of consciousness sinus tachycardia CT scan head neck was done and results read thus : Focal area of increased density in the genuine of the left internal capsule which may reflect a small focal hemorrhage. Other etiologies are not excluded. For further evaluation, MRI is recommended. 2. Atrophy. 3. Probable white matter ischemic changes. 4. Suspected right mastoiditis. Dr Quintero notified Neurologist consult with Dr Stein. On pt's assessment met her awake alert follows minimal command eyes open tracking no facial droop noted nor deviation as she smile, mentioned her names, she is confused as her baseline due to dementia, repetitive verbal utterances left sided weakness, painful to raise left upper arm, move right upper and lower extremities freely, no problems with hearing and sight blinkto threat and responds to voice command. Able to drink water no coughing nor choking, oxygen flow via high flow nasal canulla FIO2 70% 25L and breathing easy O2 sat 98% .All lines checked rt IJ hemodialysis catheter, right groin central line TLC all intact with dressing . Stone to gravity some urine noted.Ongoing support education reorientation to immediate environment and close monitoring for safety/fall precaution. Patient also oo isolation precaution for COVID. As at this time will continue to monitor and treat as per care plan
--- NOTE | 2021-10-28 19:22 | NUR ---
SBAR REPORT GIVEN TO JOHNNY VAZQUEZ, ALL CARES ENDORSED.
--- NOTE | 2021-10-28 19:24 | NUR ---
Notified Dr Stein about the consult, but he said he was not aware, no prior discussion, with Dr Quintero. So updates on pt's medical hx on admission, present condition, on isolation COVID positive, imaging reports CT of the head and neck. Also narrates incidence as per report received from Ailin VAZQUEZ and pt's daughter also aware.
--- NOTE | 2021-10-28 21:20 | NUR ---
Pt's daughter COURTNEY called for updates as at this time pt asleep eyes closed vitals signs stable no changes in care plan treatments and condition.
[2021-10-29] VITALS (28 sets, daily range): BP systolic 81–128; BP diastolic 35–67
--- NOTE | 2021-10-29 00:30 | NUR ---
Complete bed bath with CHG tolerated well skin,spivey care and pt repositioned for comfort. Pt awake alert follows command confused clear verbal response requesting that for food that she is hungry still moves all extremities eyes open no changes in pt's neuro assessment GCS 14.
[2021-10-29] MEDS: ACETAMINOPHEN 325 MG TAB PO PRN ×2 (01:39→21:11)
[2021-10-29] MEDS: ALBUTEROL SULFATE/IPRATROPIU 3 ML SOL IH SCH ×4 (01:40→19:00)
[2021-10-29] MEDS: PIPERACILLIN/TAZOBACTAM 2.25 GM in DEXTROSE 5% 50 ML IV SCH ×3 (06:53→21:10)
[2021-10-29 07:13] LABS: BASOPHILS # (AUTO) 0.1 K/uL (0.00-0.22); BASOPHILS % (AUTO) 0.1 % (0.0-2.0); EOSINOPHILS # (AUTO) 0.1 K/uL (0-0.4); EOSINOPHILS % (AUTO) 0.1 % (0.0-4.0); HEMATOCRIT 29.2 % (36-48); HEMOGLOBIN 9.2 g/dL (12.0-16.0); LYMPHOCYTES # (AUTO) 23.1 K/uL (2.5-16.5); LYMPHOCYTES % (AUTO) 31.8 % (20.5-51.1); MEAN CORPUSCULAR HEMOGLOBIN 29 pg (27-31); MEAN CORPUSCULAR HGB CONC 32 g/dL (33-37); MEAN CORPUSCULAR VOLUME 92.4 fL (80-94); MONOCYTES # (AUTO) 13.1 K/uL (0.8-1.0); NEUTROPHILS # (AUTO) 36.4 K/uL (1.8-7.7); PLATELET COUNT (AUTO) 132 K/uL (140-450); RED BLOOD CELL COUNT(AUTO) 3.16 MIL/uL (4.20-5.40); RED CELL DISTRIBUTION WIDTH 12.9 % (11.6-13.7)
--- NOTE | 2021-10-29 07:19 | NUR ---
Change of shift report given to HUMPHREY/GREG RNS as at this time pt resting comfortably,Levophed restarted, blood pressure stable no changes in care plan and condition. Follows command asked if she was okay? then she replied she was too tired no new neuro changes nor deficit noted.
--- NOTE | 2021-10-29 07:20 | NUR ---
RECEIVED REPORT FROM NIGHT TAYLOR TURNER FOR CONTINUITY OF CARE. PT A&OX2, PERRLA, ABLE TO TRACK AND ANSWER QUESTIONS APPROPRIATELY. FOLLOWS COMMANDS. HI FLOW FIO2 65%, 20L. SATURATIONS WNL. SR ON MONITOR. TRIPLE LUMEN CENTRAL LINE TO RIGHT FEMORAL INFUSING LEVOPHED AT 0.5 MCG/MIN, SODIUM BICARB AT 5ML/HR, AND NS AT 3ML/HR TKO. RIGHT IJ DIALYSIS CATHETER IN PLACE. MECHANICAL SOFT DIET. F/C TO GRAVITY DRAINING DARK DEREK URINE. BILATERAL MITTEN RESTRAINTS TO BUE, NO S/S OF INJURY. HEEL PROTECTORS IN PLACE. BILATERAL DTI TO BOTH HEELS, OTHERWISE SKIN IS INTACT. SAFETY PRECAUTIONS IN PLACE, BED IN LOWEST POSITION, CALL LIGHT WITHIN REACH.
[2021-10-29 07:21] LABS: ANION GAP 17.1 (8-16); CARBON DIOXIDE 23.7 mmol/L (21-32); CHLORIDE 100 mmol/L (98-107); GLUCOSE 109 mg/dL (74-106); POTASSIUM 3.8 mmol/L (3.5-5.1); SODIUM SERUM 137 mmol/L (136-145)
[2021-10-29 07:25] LABS: UREA NITROGEN, BLOOD 97 mg/dL (7-18)
--- NOTE | 2021-10-29 07:50 | NUR ---
LAB CALLED TO NOTIFY CRITICAL LAB VALUE, BUN: 97, CR: 3, AND WBC: 72.3. PAGED DR. ASYA MONK TO NOTIFY OF BUN AND CR. NOTIFIED HIM THAT PT HAD CT WITH CONTRAST YESTERDAY. DR. MONK ORDERED HEMODIALYSIS. TEXTED DR. JUAREZ TO NOTIFY OF ELEVATED WBC. DR. JUAREZ CONFIRMED THAT HE RECEIVED THE MESSAGE.
[2021-10-29 07:59] LABS: WHITE BLOOD COUNT (AUTO) 72.8 K/uL (4.8-10.8)
--- NOTE | 2021-10-29 09:30 | NUR ---
SEEN AND EXAMINED BY DR LACHO CHO.
--- NOTE | 2021-10-29 09:34 | NUR ---
SEEN AND EXAMINED BY DR FIELDS.
--- NOTE | 2021-10-29 09:34 | NUR ---
10/29/21 RD FOLLOW UP COMPLETED. PLEASE REFER TO NUTRITION ASSESSMENT UNDER CARE ACTIVITY FOR ESTIMATED NUTRITIONAL NEEDS. 1. CONTINUE RENAL MECHANICAL SOFT DIET TOLERATED 2. CONTINUE NEPRO BID PER RD PROTOCOL 3. MONITOR PO INTAKE -IF PT UNABLE TO TOLERATE, DOWNGRADE TEXTURE OR CONSULT ST -IF PT REQUIRES TF, RECOMMEND NEPRO @ 40 ML/HR WITH FWF 100 ML Q6H RECOMMENDED BY RD 10/26/21 OR PER MD 4. RD TO FOLLOW-UP 2-3 DAYS, HIGH RISK RENY STEWART RD
--- NOTE | 2021-10-29 09:42 | NUR ---
SEEN AND EXAMINED BY DR JUAREZ. DAUGHTER LORENA OUTSIDE ROOM, UPDATED REGARDING PT CONDITION.
[2021-10-29] MEDS: PANTOPRAZOLE 40 MG INJ VIAL IVP SCH (09:53)
[2021-10-29] MEDS: DEXAMETHASONE 4 MG/ML VIAL IVP SCH (09:53)
[2021-10-29] MEDS: OSELTAMIVIR PHOSPHATE 30 MG CAP PO SCH (09:54)
[2021-10-29] MEDS: guaiFENesin 600 MG TABER PO SCH ×2 (09:54→21:10)
--- NOTE | 2021-10-29 10:35 | NUR ---
SEEN AND EXAMINED BY DR. CHAPMAN. NO NEW ORDERS.
--- NOTE | 2021-10-29 12:45 | NUR ---
PT CONSUMED 50% OF LUNCH, RENAL MECHANICAL SOFT DIET. TOLERATED WELL.
--- NOTE | 2021-10-29 14:50 | NUR ---
SEEN AND EXAMINED BY DR. PITTS.
[2021-10-29] MEDS ORDERED: VANCOMYCIN 750 MG in DEXTROSE 5% 250 ML IV SCH (15:00)
--- NOTE | 2021-10-29 15:45 | NUR ---
PT RECEIVING HEMODIALYSIS, TOLERATING WELL. HAD SMALL BM. CLEANED AND REPOSITIONED. SACRAL FOAM DRESSING CHANGED, SKIN IS INTACT.
--- NOTE | 2021-10-29 19:25 | NUR ---
GAVE REPORT TO JOHNNY MAKING MACHINE OPERATOR RN FOR CONTINUITY OF CARE.
--- NOTE | 2021-10-29 20:30 | NUR ---
@1930 Change of shift report received from HUMPHREY VAZQUEZ at bedside. Met PT awake greenlandic/Costa Rican speaking asked her about her feelings and she responded that she is okay. Vitals signs stable ongoing levophed drip @4mcg/min, genralized weakness moves right upper and lower extremities stronger that left side also pain on the upper extremities kobeer mentioned that pt have bad left shoulder arthritis, spivey care, urine very dark red concentrated, pt repositioned for comfort bed in low position unable to use the call light mittens on bilaterally as pt tried to pull the HD catheter and assisted with her dinner,drank some water no problem encountered. Bed in low position close monitoring for safety and treat as per care plan.
[2021-10-29] MEDS: ZOLPIDEM 5 MG TAB PO PRN (21:10)
[2021-10-29] MEDS: SODIUM BICARBONATE 8.4% 50 MEQ in DEXTROSE 5% 1,000 ML IV SCH (21:10)
[2021-10-29] MEDS: DOCUSATE SODIUM 100 MG GELCAP PO PRN (21:11)
--- NOTE | 2021-10-29 21:20 | NUR ---
pt's daughter called updates on condition as at this time pt awake vitals signs stable ongoing Levophed no changes in care plan tolerating well .
--- NOTE | 2021-10-29 22:30 | NUR ---
Continually low blood pressure Levophed titrated up to 10mcgs/min pt awake no changes noted in alertness follows verbal command and responding that she is okay.
[2021-10-30] VITALS (29 sets, daily range): BP systolic 88–179; BP diastolic 41–109
[2021-10-30] MEDS: ALBUTEROL SULFATE/IPRATROPIU 3 ML SOL IH SCH ×4 (01:55→20:15)
--- NOTE | 2021-10-30 04:15 | NUR ---
Complete bed bath with CHG skin , oral and spivey care tolerated well no problem encountered.
[2021-10-30] MEDS: MORPHINE SULFATE 2 MG/ML SYR IVP PRN (05:24)
[2021-10-30] MEDS: PIPERACILLIN/TAZOBACTAM 2.25 GM in DEXTROSE 5% 50 ML IV SCH ×3 (05:24→21:37)
[2021-10-30 05:36] LABS: BASOPHILS # (AUTO) 0.4 K/uL (0.00-0.22); BASOPHILS % (AUTO) 0.3 % (0.0-2.0); EOSINOPHILS # (AUTO) 0.4 K/uL (0-0.4); EOSINOPHILS % (AUTO) 0.3 % (0.0-4.0); HEMATOCRIT 31.2 % (36-48); HEMOGLOBIN 9.5 g/dL (12.0-16.0); LYMPHOCYTES # (AUTO) 47.7 K/uL (2.5-16.5); MEAN CORPUSCULAR HEMOGLOBIN 28 pg (27-31); MEAN CORPUSCULAR HGB CONC 30 g/dL (33-37); MEAN CORPUSCULAR VOLUME 93.1 fL (80-94); MONOCYTES # (AUTO) 15.2 K/uL (0.8-1.0); MONOCYTES % (AUTO) 11.5 % (1.7-9.3); NEUTROPHILS # (AUTO) 68.7 K/uL (1.8-7.7); NEUTROPHILS % (AUTO) 51.9 % (42.2-75.2); PLATELET COUNT (AUTO) 111 K/uL (140-450); RED BLOOD CELL COUNT(AUTO) 3.35 MIL/uL (4.20-5.40); RED CELL DISTRIBUTION WIDTH 12.8 % (11.6-13.7)
[2021-10-30 05:46] LABS: ANION GAP 13.5 (8-16); CARBON DIOXIDE 27.1 mmol/L (21-32); CHLORIDE 96 mmol/L (98-107); CREATININE 2.8 mg/dL (0.6-1.3); GLUCOSE 108 mg/dL (74-106); POTASSIUM 3.6 mmol/L (3.5-5.1); SODIUM SERUM 133 mmol/L (136-145)
[2021-10-30 06:01] LABS: UREA NITROGEN, BLOOD 61 mg/dL (7-18)
[2021-10-30 06:08] LABS: WHITE BLOOD COUNT (AUTO) 132.3 K/uL (4.8-10.8)
--- NOTE | 2021-10-30 06:30 | NUR ---
@0554 complained of leg pain, as she said "mucho dolor" I am in terrible pain, moaning grimacing, unable to rate her pain level, Morphine 2mg ivp given. she is asleep comfortably as at this time no more sign of distress. Effective intervention.
--- NOTE | 2021-10-30 07:30 | NUR ---
Change of shift bedside report endorsed to LIDIA VAZQUEZ as at this time no changes in care plan and pt's condition. Resting comfortably no sign of distress and vitals signs stable.
--- NOTE | 2021-10-30 07:35 | NUR ---
RECEIVED PT AWAKE AND CONFUSED TO PERSON, PLACE, AND TIME. ON HIGH FLOW NASAL CANNULA 25L FIO2@45%. SINUS RHYTHM ON MONITOR. ABD SOFT AND NONDISTENDED. PARIKH CATHETER INTACT AND DRAINING TO BSD. BILAT MITTENS IN PLACE. BILAT HEEL PROTECTORS IN PLACE. CENTRAL LINE ON RIGHT FEMORAL INTACT AND PATENT INFUSING LEVOPHED @ 6MCG/MIN, SODIUM BICARB 8.4% 50MEQ IN DEXTROSE 5% @5ML/HR, AND NS@10ML/HR. RIGHT IJ HEMODIALYSIS CATHETER INTACT. SAFETY PRECAUTIONS IN PLACE.
--- NOTE | 2021-10-30 08:38 | NUR ---
REPORTED HIGH WBC TO DR. JUAREZ. ORDER RECEIVED TO RENEW ZOSYN.
[2021-10-30] MEDS ORDERED: WATER STERILE 0 ML MC ONE (08:44)
[2021-10-30] MEDS: PANTOPRAZOLE 40 MG INJ VIAL IVP SCH (08:45)
[2021-10-30] MEDS: guaiFENesin 600 MG TABER PO SCH ×2 (08:46→21:37)
[2021-10-30] MEDS: DEXAMETHASONE 4 MG/ML VIAL IVP SCH (08:46)
--- NOTE | 2021-10-30 08:47 | NUR ---
XRAY BEING DONE AT BEDSIDE.
[2021-10-30] MEDS: FOAM DRESSING TP SCH (09:27)
--- NOTE | 2021-10-30 11:05 | NUR ---
SEEN AND EXAMINED BY DR. BURT. DAUGHTER LORENA OUTSIDE ROOM. ALL QUESTIONS ANSWERED.
[2021-10-30] MEDS: OSELTAMIVIR PHOSPHATE 30 MG CAP PO SCH (11:43)
[2021-10-30] MEDS: NOREPINEPHRINE 16 MG in DEXTROSE 5% 250 ML IV PRN (14:02)
--- NOTE | 2021-10-30 14:45 | NUR ---
SPEECH THERAPIST AT BEDSIDE EXAMINING PT.
[2021-10-30] MEDS: SODIUM BICARBONATE 8.4% 50 MEQ in DEXTROSE 5% 1,000 ML IV SCH (15:15)
--- NOTE | 2021-10-30 15:47 | NUR ---
SEEN AND EXAMINED BY DR. MAIN. DR. MAIN ON THE PHONE WITH DAUGHTER LORENA. ALL QUESTIONS ANSWERED.
--- NOTE | 2021-10-30 15:50 | NUR ---
SEEN AND EXAMINED BY DR. CHAPMAN. GAVE UPDATES TO MD WITH NO NEW ORDERS.
--- NOTE | 2021-10-30 17:50 | NUR ---
HEMODIALYSIS DONE AT BEDSIDE.
--- NOTE | 2021-10-30 19:10 | NUR ---
ENDORSED TO FLOORS BUFFER NURSE TURNER FOR CONTINUITY OF CARE.
--- NOTE | 2021-10-30 19:23 | NUR ---
CALLED TO BEDSIDE PT CURRENTLY RECEIVING HD AND DESAT TO LOW/MID 80s HF TITRATED TO 25L 65% WITH CURRENT SPO2 92% 5 MIN POST TITRATION WILL CONTINUE TO MONITOR AND TITRATE TOLERATED
--- NOTE | 2021-10-30 19:40 | NUR ---
@1915 Bedside report received change of shift from Yvette VAZQUEZ. Restful ongoing hemodialysis follows command, denies pain, oxygen delivery via high flow nasal cannula 20/55% O2 sat 93% no sign of shortness of breadth, spivey checked below bladder, Oliguric plus hemodialysis. Restraints released skin checked ROM done, pt education on care plan but she is confused, advised not to pull tubes, continuos support, reorientation close monitoring for safety and treat as per care plan.
--- NOTE | 2021-10-30 20:20 | NUR ---
Hemodialysis completed at the bedside with Net output of 2lters as per report received from fiberglass dowel drawing operator. Pt. tolerated well no problem encountered
--- NOTE | 2021-10-30 21:15 | NUR ---
Pt's daughter Navjot updates on pt's condition hemodialysis done pt tolerated well vitals signs stable resting as at this time
[2021-10-30] MEDS: ACETAMINOPHEN 325 MG TAB PO PRN (21:37)
--- NOTE | 2021-10-30 22:45 | NUR ---
Complete bed bath with CHG, skin care no breakdown noted tolerated well and repositioned for comfort with pillow support vitals signs stable ongoing Levophed drip and oxygen support via high flow nasal canulla 20lters FIO2 55%.
--- NOTE | 2021-10-30 23:28 | NUR ---
HF TITRATED TO 23L 40% PT TOLERATING WELL AND SLEEPING COMFORTABLY W/ NO DISTRESS NOTED WILL CONTINUE TO MONITOR AND TITRATE TOLERATED
[2021-10-31] VITALS (27 sets, daily range): BP systolic 82–147; BP diastolic 28–91
[2021-10-31] MEDS: ALBUTEROL SULFATE/IPRATROPIU 3 ML SOL IH SCH ×4 (01:00→19:00)
[2021-10-31] MEDS: PIPERACILLIN/TAZOBACTAM 2.25 GM in DEXTROSE 5% 50 ML IV SCH ×3 (05:42→21:26)
[2021-10-31 05:43] LABS: BASOPHILS # (AUTO) 0.3 K/uL (0.00-0.22); BASOPHILS % (AUTO) 0.3 % (0.0-2.0); EOSINOPHILS # (AUTO) 0.4 K/uL (0-0.4); EOSINOPHILS % (AUTO) 0.3 % (0.0-4.0); HEMATOCRIT 30.1 % (36-48); LYMPHOCYTES # (AUTO) 43.1 K/uL (2.5-16.5); LYMPHOCYTES % (AUTO) 36.1 % (20.5-51.1); MEAN CORPUSCULAR HEMOGLOBIN 28 pg (27-31); MEAN CORPUSCULAR HGB CONC 30 g/dL (33-37); MONOCYTES # (AUTO) 10.1 K/uL (0.8-1.0); MONOCYTES % (AUTO) 8.4 % (1.7-9.3); NEUTROPHILS # (AUTO) 65.4 K/uL (1.8-7.7); NEUTROPHILS % (AUTO) 54.9 % (42.2-75.2); PLATELET COUNT (AUTO) 102 K/uL (140-450); RED BLOOD CELL COUNT(AUTO) 3.24 MIL/uL (4.20-5.40); RED CELL DISTRIBUTION WIDTH 13.3 % (11.6-13.7)
[2021-10-31 06:05] LABS: WHITE BLOOD COUNT (AUTO) 119.3 K/uL (4.8-10.8)
[2021-10-31 06:07] LABS: CARBON DIOXIDE 25.3 mmol/L (21-32); CHLORIDE 94 mmol/L (98-107); CREATININE 4.1 mg/dL (0.6-1.3); GLUCOSE 126 mg/dL (74-106); POTASSIUM 4.3 mmol/L (3.5-5.1); SODIUM SERUM 134 mmol/L (136-145); UREA NITROGEN, BLOOD 82 mg/dL (7-18)
--- NOTE | 2021-10-31 07:10 | NUR ---
Change of shift report given to Yvette VAZQUEZ continuity of care pt eyes closed asleep vitals signs stable and no sign of distress noted and no changes in pt's condition.
--- NOTE | 2021-10-31 07:20 | NUR ---
Received pt afebrile, easily arousal to voice, noted with confusion to person, place, and time. Pt using repetitive sentences. On high flow nasal cannula at 23L, FIO2@40%. Sinus rhythm on monitor. Right IJ hemodialysis catheter intact. Stone catheter draining to gravity. Right femoral central line intact and patent infusing levophed @2mcg/min and sodium bicarb with dextrose @5ml/hr. Bilat heel protectors in place. Safety precautions in place.
[2021-10-31] MEDS: DEXAMETHASONE 4 MG/ML VIAL IVP SCH (08:32)
[2021-10-31] MEDS: PANTOPRAZOLE 40 MG INJ VIAL IVP SCH (08:32)
[2021-10-31] MEDS: guaiFENesin 600 MG TABER PO SCH ×2 (08:33→21:31)
--- NOTE | 2021-10-31 09:17 | NUR ---
Seen and examined by Dr. Quintero. New order received.
--- NOTE | 2021-10-31 11:30 | NUR ---
Seen and examined by Dr. Carpio.
[2021-10-31] MEDS: MIDODRINE 5 MG TAB PO SCH ×2 (12:10→16:41)
--- NOTE | 2021-10-31 12:45 | NUR ---
Seen and examined by Dr. Thronton. No new orders.
--- NOTE | 2021-10-31 13:51 | NUR ---
10/31/21 RD FOLLOW UP COMPLETED PLEASE REFER TO NUTRITION ASSESSMENT UNDER CARE ACTIVITY FOR ESTIMATED NUTRITIONAL NEEDS. 1. CONTINUE RENAL MECHANICAL SOFT DIET TOLERATED 2. CONTINUE NEPRO BID PER RD PROTOCOL 3. MONITOR NUTRITION-RELATED LAB VALUES 4. RD TO FOLLOW-UP 3-5 DAYS, MODERATE RISK IGNACIA COLON, RD
[2021-10-31] MEDS: MORPHINE SULFATE 2 MG/ML SYR IVP PRN (14:17)
--- NOTE | 2021-10-31 16:15 | NUR ---
Seen by Dr. Rosas. No new orders.
[2021-10-31] MEDS: NOREPINEPHRINE 16 MG in DEXTROSE 5% 250 ML IV PRN (18:57)
--- NOTE | 2021-10-31 19:20 | NUR ---
Assumed pt care report received from LIDIA VAZQUEZ met pt awake but confused fearful, follows command, reorientation, education ongoing support to alleviates anxiety, vitals signs stable still on levophed drip oxygen delivery via high flow oxygen 20ltrs/fio2 28% O2 sat 94% no sign of shortness of breadth, oral care done fluids offered skin care and repositioned for comfort. Ongoing monitoring and treat as per care plan,
--- NOTE | 2021-10-31 19:26 | NUR ---
Endorsed to nightman nurse Slater for continuity of care.
--- NOTE | 2021-10-31 20:25 | NUR ---
Pt's daughter visiting by the window, education on care plan treatments, pt's condition she verbalized understanding also mentioned to her that last night, pt said that I should remember her that she might soon, emotional support provided as the daughter was distraught and I suggested to have the gasser machine operator pray for her and encouraged other family members to come visit her. She agreed and that her daughter pt's grand daughter will call in tomorrow from [place].
[2021-10-31] MEDS ORDERED: IBUPROFEN 400 MG TAB PO PRN (21:00)
[2021-10-31] MEDS ORDERED: IBUPROFEN 400 MG TAB ONE (21:30)
[2021-10-31] MEDS: ZOLPIDEM 5 MG TAB PO PRN (21:31)
--- NOTE | 2021-10-31 22:25 | NUR ---
Navjot peg's daughter called again and said if her mother is taking turn for the worse to call her immediately as she does not want her to be alone.
[2021-11-01] VITALS (24 sets, daily range): BP systolic 92–189; BP diastolic 32–92
[2021-11-01 05:07] LABS: HEMOGLOBIN 7.8 g/dL (12.0-16.0); MEAN CORPUSCULAR HGB CONC 29 g/dL (33-37)
[2021-11-01 05:26] LABS: BASOPHILS # (AUTO) 0.4 K/uL (0.00-0.22); BASOPHILS % (AUTO) 0.3 % (0.0-2.0); HEMATOCRIT 26.5 % (36-48); LYMPHOCYTES # (AUTO) 47.7 K/uL (2.5-16.5); LYMPHOCYTES % (AUTO) 35.9 % (20.5-51.1); MEAN CORPUSCULAR HEMOGLOBIN 28 pg (27-31); MEAN CORPUSCULAR VOLUME 93.5 fL (80-94); MONOCYTES # (AUTO) 14.7 K/uL (0.8-1.0); NEUTROPHILS # (AUTO) 70.2 K/uL (1.8-7.7); NEUTROPHILS % (AUTO) 52.8 % (42.2-75.2); PLATELET COUNT (AUTO) 116 K/uL (140-450); RED BLOOD CELL COUNT(AUTO) 2.83 MIL/uL (4.20-5.40); RED CELL DISTRIBUTION WIDTH 13.2 % (11.6-13.7)
[2021-11-01 05:30] LABS: ANION GAP 19.5 (8-16); CARBON DIOXIDE 23.1 mmol/L (21-32); CHLORIDE 95 mmol/L (98-107); GLUCOSE 124 mg/dL (74-106); POTASSIUM 4.6 mmol/L (3.5-5.1); SODIUM SERUM 133 mmol/L (136-145)
[2021-11-01 05:31] LABS: CREATININE 4.9 mg/dL (0.6-1.3)
[2021-11-01 05:32] LABS: WHITE BLOOD COUNT (AUTO) 132.9 K/uL (4.8-10.8)
[2021-11-01] MEDS: PIPERACILLIN/TAZOBACTAM 2.25 GM in DEXTROSE 5% 50 ML IV SCH ×3 (06:17→21:52)
--- NOTE | 2021-11-01 07:25 | NUR ---
SBAR REPORT RECEIVED FROM JOHNNY VAZQUEZ, ALL CARES ASSUMED. PT RESTING IN BED WITH EYES CLOSED. BED LOCKED AND IN LOW POSITION, CALL LIGHT WITHIN REACH.
--- NOTE | 2021-11-01 07:25 | NUR ---
Bedside report at the change of shift given to Ailin VAZQUEZ for continuity of care as at this time no changes in care plan and pt's condition
[2021-11-01] MEDS: ALBUTEROL SULFATE/IPRATROPIU 3 ML SOL IH SCH ×3 (08:00→20:19)
--- NOTE | 2021-11-01 08:20 | NUR ---
PT TAKEN OFF OF HIGH FLOW AND PLACED ON 4L NC TOLERATING WELL. WILL CONTINUE TO MONITOR.
[2021-11-01] MEDS: DEXAMETHASONE 4 MG/ML VIAL IVP SCH (09:30)
[2021-11-01] MEDS: guaiFENesin 600 MG TABER PO SCH ×2 (09:31→21:55)
[2021-11-01] MEDS: MIDODRINE 5 MG TAB PO SCH ×3 (09:31→17:44)
[2021-11-01] MEDS: PANTOPRAZOLE 40 MG INJ VIAL IVP SCH (09:31)
--- NOTE | 2021-11-01 11:20 | NUR ---
FAMILY STANDING OUTSIDE ROOM,UPDATE GIVEN, ALL QUESTIONS ANSWERED AT THIS TIME.
--- NOTE | 2021-11-01 11:30 | NUR ---
DR. BURT ROUNDING AT BEDSIDE. DISCUSSING PLAN WITH FAMILY. NO NEW ORDERS AT THIS TIME.
--- NOTE | 2021-11-01 18:00 | NUR ---
DISCHARGE PLANNING PATIENT IS AN 81 YEAR OLD FEMALE ADMITTED TO THE [facility]/ ED ON 10/25/2021 DUE TO ALTERED MENTAL STATUS, WEAKNESS AND CONFUSION. PATIENT HAS MEDICAL HISTORY OF DEMENTIA, RENAL FAILURE, HYPOTHYROIDISM. HYPERLIPIDEMIA. SW WAS UNABLE TO SPEAK TO PATIENT SINCE SHE IS UNABLE TO PROVIDE HER OWN INFORMATION AND BEEN QUARANTINE FROM COVID 19. SW CALL PATIENT'S DAUGHTER LORENA GAMBOA WHO WAS ABLE TO PROVIDE PATIENT'S COLLATERAL INFORMATION. PER DAUGTHER PATIENT WAS LEAVING WITH HER IN HER HOUSE AN ACTIVE LIFE; UNTIL LAST YEAR IN 2020 PATIENT'S DEMENTIA AND HEALTH DECLINED AND [facility]. PER DAUGHTER SHE WAS NOT HAPPY WITH THE FACILITY AND DID NOT LIKE HOW WOULD THE STAFF CARE FOR PATIENT. ACCORDING TO DAUGHTER PATIENT RECENTLY GOT COVID FROM THE SNF STAFF AND SHE DOESNT WANT PATIENT TO RETURN TO THE SAME FACILITY AFTER HER DISCHARGE. PER PATIENT'S DAUGHTER SHE WANTS PATIENT TO BE PLACED IN A SNF CLOSER TO HER IN THE [place] [facility]; SHE CAN VISIT HER REGULARLY. PER DAUGHTER SHE HAS A POA AND HAS PROVIDED DOCUMENTATION ON HER CHART. PATIENT HAS NO ISSUES GETTING OR TAKING HER MEDICATIONS AND HAS ONLY A WHEELCHAIR HER DME. PATIENT HAS SUPPORTIVE FAMILY AND DAUGHTER WANTS HER TO BE PLACE IN A SNF CLOSER TO HER HOME SW THANKED DAUGHTER FOR THE INFORMATION AND WILL FOLLOW UP NEEDED.
--- NOTE | 2021-11-01 19:28 | NUR ---
SBAR REPORT GIVEN TO JOHNNY VAZQUEZ, ALL CARES ENDORSED.
--- NOTE | 2021-11-01 19:45 | NUR ---
@1920 Assumed pt care report received from Ailin VAZQUEZ at the bedside. Pt awake alert confused elevated blood pressure Levophed drip turmed off, HR in 80's denies pain but when repositioned facial grimaces moaning generalized weakness, skin care fluids offered, and repositioned for comfort.
--- NOTE | 2021-11-01 20:40 | NUR ---
Pt's daughter Navjot at the bedside visiting, support provided, education on care plan, and she verbalized understanding and encourage to states her concern. And she signed consent for the Perma cath insertion.
[2021-11-01] MEDS: ACETAMINOPHEN 325 MG TAB PO PRN (21:53)
[2021-11-01 22:34] LABS: UREA NITROGEN, BLOOD 106 mg/dL (7-18)
[2021-11-02] VITALS (23 sets, daily range): BP systolic 88–164; BP diastolic 35–95
[2021-11-02] MEDS: ALBUTEROL SULFATE/IPRATROPIU 3 ML SOL IH SCH ×4 (00:07→19:48)
--- NOTE | 2021-11-02 04:30 | NUR ---
Complete bed bath given linen changed spivey care repositioned for comfort tolerated well with minimal discomfort and vitals signs stable
[2021-11-02] MEDS: PIPERACILLIN/TAZOBACTAM 2.25 GM in DEXTROSE 5% 50 ML IV SCH ×3 (05:22→21:45)
[2021-11-02 06:01] LABS: HEMATOCRIT 26.8 % (36-48); HEMOGLOBIN 8.2 g/dL (12.0-16.0); MEAN CORPUSCULAR HEMOGLOBIN 28 pg (27-31); MEAN CORPUSCULAR HGB CONC 30 g/dL (33-37); MEAN CORPUSCULAR VOLUME 92.7 fL (80-94); PLATELET COUNT (AUTO) 170 K/uL (140-450); RED BLOOD CELL COUNT(AUTO) 2.89 MIL/uL (4.20-5.40); RED CELL DISTRIBUTION WIDTH 13.2 % (11.6-13.7)
[2021-11-02 06:34] LABS: ANION GAP 22.8 (8-16); CARBON DIOXIDE 20.4 mmol/L (21-32); CHLORIDE 96 mmol/L (98-107); GLUCOSE 97 mg/dL (74-106); POTASSIUM 5.2 mmol/L (3.5-5.1); SODIUM SERUM 134 mmol/L (136-145)
[2021-11-02] MEDS ORDERED: VANCOMYCIN PER PHARMACY MC PRN (06:35)
[2021-11-02 06:36] LABS: CREATININE 4.4 mg/dL (0.6-1.3); UREA NITROGEN, BLOOD 118 mg/dL (7-18)
[2021-11-02 06:52] LABS: WHITE BLOOD COUNT (AUTO) 120.8 K/uL (4.8-10.8)
--- NOTE | 2021-11-02 07:00 | NUR ---
Elevated BUN AND CREATNINE 118/4.4 there is an order and plan for hemodialysis today. WBC was 120.8 trending down from previous results,.
--- NOTE | 2021-11-02 07:13 | NUR ---
Change of shift report at the bedside to Karla VAZQUEZ for continuity of care as at this time vitals signs stable pt resting comfortably and no changes in care plan.
--- NOTE | 2021-11-02 07:20 | NUR ---
Received report on pt. Pt asleep, arousable, in no signs of pain or distress on 2L O2 via nasal cannula. Levophed drip off on pt. Noted right IJ zachary catheter and right femoral TLC with NS TKO. Stone in place draining urine to gravity. Bilateral heel protectors in place offloaded with pillows.
--- NOTE | 2021-11-02 07:25 | NUR ---
RECEIVED PT ON 2L NASAL CANNULA, SATURATION WAS 99%. TREATMENT WAS GIVEN AND PT IS RESTING COMFORTABLY.
--- NOTE | 2021-11-02 08:30 | NUR ---
Pt given breakfast and medications. Pt awake repeating phrases, sometimes answering simple questions. Attempted to give pt pancakes and eggs, but pt spit out food. Pt did have intake of other parts of tray such as nepro, applesauce, and juice.
[2021-11-02] MEDS: DEXAMETHASONE 4 MG/ML VIAL IVP SCH (08:53)
[2021-11-02] MEDS: PANTOPRAZOLE 40 MG INJ VIAL IVP SCH (08:53)
[2021-11-02] MEDS: MIDODRINE 5 MG TAB PO SCH ×2 (08:54→12:07)
[2021-11-02] MEDS: FOAM DRESSING TP SCH (08:54)
[2021-11-02] MEDS: guaiFENesin 600 MG TABER PO SCH ×2 (08:55→21:46)
[2021-11-02 09:58] LABS: BLASTS, MANUAL % 3 % (0-0); LYMPHOCYTES % (MANUAL) 40 % (20-46); MONOCYTES % (MANUAL) 7 % (5-12)
--- NOTE | 2021-11-02 10:30 | NUR ---
Updates given to pt's daughter Laura
[2021-11-02] MEDS: ACETAMINOPHEN 325 MG TAB PO PRN (11:28)
--- NOTE | 2021-11-02 14:30 | NUR ---
Pt off unit to CT scan with continuous O2 and monitoring
--- NOTE | 2021-11-02 14:45 | NUR ---
Pt return from CT scan. Tolerated well. Re-situated to room.
[2021-11-02] MEDS ORDERED: VANCOMYCIN 750 MG in DEXTROSE 5% 250 ML IV SCH (15:00)
--- NOTE | 2021-11-02 15:10 | NUR ---
Dr. Thornton rounding on pt and spoke with pt's daughter Laura on phone regarding plan of care.
--- NOTE | 2021-11-02 15:25 | NUR ---
Varun Bray military technology manager regarding Dr. Thornton wanting to order dialysis on pt.
[2021-11-02] MEDS ORDERED: ALBUMIN HUMAN 25% 100 ML IV SCH (17:00)
--- NOTE | 2021-11-02 17:24 | NUR ---
vp analysis at bedside initiating dialysis. Pt also noted with BP 73/40 after administration of albumin per MD order, restarted levophed drip.
--- NOTE | 2021-11-02 19:31 | NUR ---
Endorsed plan of care to RN. Pt still in dialysis, unable to provide dinner d/t pt position for dialysis.
--- NOTE | 2021-11-02 20:30 | NUR ---
PHARMACEUTICAL SALES REPRESENTATIVE COMPLETED DIALYSIS ON PT, PT HAD 1.3 L OUTPUT
[2021-11-03] VITALS (23 sets, daily range): BP systolic 70–154; BP diastolic 38–104
[2021-11-03] MEDS: ALBUTEROL SULFATE/IPRATROPIU 3 ML SOL IH SCH ×4 (00:30→19:07)
[2021-11-03] MEDS: PIPERACILLIN/TAZOBACTAM 2.25 GM in DEXTROSE 5% 50 ML IV SCH ×2 (05:06→12:44)
[2021-11-03 06:33] LABS: ANION GAP 17.7 (8-16); CARBON DIOXIDE 25.2 mmol/L (21-32); CHLORIDE 99 mmol/L (98-107); CREATININE 2.7 mg/dL (0.6-1.3); GLUCOSE 78 mg/dL (74-106); POTASSIUM 3.9 mmol/L (3.5-5.1); SODIUM SERUM 138 mmol/L (136-145)
--- NOTE | 2021-11-03 07:23 | NUR ---
GAVE REPORT TO BERRY VAZQUEZ & HER RN ORIENTEE WHO ASSUMED TOTAL CARE OF THE PATIENT ALL QUESTIONS AND CONCERNS WERE ANSWERED.
--- NOTE | 2021-11-03 07:24 | NUR ---
RECEIVED REPORT FROM TESSY ABRASIVE GRINDER RN FOR CONTINUITY OF CARE. A&OX0, PERRLA. ON 2L NC, RESPIRATIONS EVEN AND UNLABORED. SR, SB ON MONITOR. R FEMORAL CENTRAL LINE IN PLACE, PATENT AND INTACT, INFUSING LEVO AT 2 MCG AND NS TKO 5 ML/HR. R IJ MARYANN CATH IN PLACE, INTACT. BS ACTIVE IN ALL QUADRANTS. F/C TO GRAVITY DRAINING CLEAR, YELLOW URINE. GENERALIZED WEAKNESS. DROPLET PRECAUTIONS IN PLACE. HEEL PROTECTORS AND SCD'S IN PLACE. BED IN LOWEST POSITION, CALL LIGHT WITHIN REACH.
--- NOTE | 2021-11-03 07:25 | NUR ---
RECEIVED PT ON 2L NASAL CANNULA WITH BUBBLE HUMIDIFIER. SATURATION WAS 95%. PT TOLERATED TREATMENT WELL.
[2021-11-03 07:57] LABS: UREA NITROGEN, BLOOD 69 mg/dL (7-18)
[2021-11-03] MEDS: MIDODRINE 5 MG TAB PO SCH ×6 (08:00→17:06)
--- NOTE | 2021-11-03 09:00 | NUR ---
DR. SHAHRZAD CULVER ROUNDED ON PT. NO NEW ORDERS RECEIVED.
[2021-11-03] MEDS: DEXAMETHASONE 4 MG/ML VIAL IVP SCH (09:32)
[2021-11-03] MEDS: PANTOPRAZOLE 40 MG INJ VIAL IVP SCH (09:33)
[2021-11-03] MEDS: guaiFENesin 600 MG TABER PO SCH ×2 (09:33→21:05)
--- NOTE | 2021-11-03 09:40 | NUR ---
WOUND CARE RE-EVALUATION NOTE: WOUND ASSESSMENT DONE, NO NEW DISCOVERY. PT. IS AWAKE. GOOD EYE CONTACT WITH CONFUSION. PLAN OF CARE DISCUSSED WITH PRIMARY RN TO CONTINUE CURRENT TREATMENT PLAN. -RIGHT HEEL DTI 2.5X2CM 100% MAROON, MUSHY, CONG-WOUND BLANCHABLE REDNESS WITH SKIN INTACT -LEFT HEEL DTI 3X3CM, 100% MAROON, MUSHY, CONG-WOUND BLANCHABLE REDNESS, MUSHY, SKIN INTACT
--- NOTE | 2021-11-03 10:40 | NUR ---
SEEN AND EXAMINED BY DR. AMINATA LEIVA. NO NEW ORDERS RECEIVED.
--- NOTE | 2021-11-03 11:15 | NUR ---
DR. NADIRA RIBERA ROUNDED ON PT. NO NEW ORDERS RECEIVED.
[2021-11-03 12:38] LABS: BASOPHILS # (AUTO) 0.1 K/uL (0.00-0.22); BASOPHILS % (AUTO) 0.1 % (0.0-2.0); EOSINOPHILS # (AUTO) 0.1 K/uL (0-0.4); EOSINOPHILS % (AUTO) 0.1 % (0.0-4.0); HEMATOCRIT 24.5 % (36-48); HEMOGLOBIN 7.6 g/dL (12.0-16.0); LYMPHOCYTES # (AUTO) 30.8 K/uL (2.5-16.5); LYMPHOCYTES % (AUTO) 36.5 % (20.5-51.1); MEAN CORPUSCULAR HEMOGLOBIN 29 pg (27-31); MEAN CORPUSCULAR HGB CONC 31 g/dL (33-37); MEAN CORPUSCULAR VOLUME 91.5 fL (80-94); MONOCYTES # (AUTO) 4.9 K/uL (0.8-1.0); MONOCYTES % (AUTO) 5.8 % (1.7-9.3); NEUTROPHILS # (AUTO) 48.4 K/uL (1.8-7.7); NEUTROPHILS % (AUTO) 57.5 % (42.2-75.2); PLATELET COUNT (AUTO) 124 K/uL (140-450); RED BLOOD CELL COUNT(AUTO) 2.68 MIL/uL (4.20-5.40); RED CELL DISTRIBUTION WIDTH 13.1 % (11.6-13.7)
[2021-11-03 12:45] LABS: WHITE BLOOD COUNT (AUTO) 84.4 K/uL (4.8-10.8)
--- NOTE | 2021-11-03 12:50 | NUR ---
LAB CALLED TO REPORT A CRITICAL LAB RESULT OF WBC 84.4. NOTIFIED DR. CHAPMAN. NO NEW ORDERS RECEIVED.
--- NOTE | 2021-11-03 13:40 | NUR ---
DR. ALAN CHAPMAN ROUNDED ON PT. NO NEW ORDERS RECEIVED.
--- NOTE | 2021-11-03 14:04 | NUR ---
DAUGHTER LORENA CALLED ASKING TO SPEAK WITH A DOCTOR REGARDING PLANS FOR TRANSFER. ARRANGED FOR DR. SHAHRZAD CULVER TO CONTACT LORENA TO DISCUSS PLANS TO TRANSFER PT TO REHAB/SNF. CALLED LORENA BACK TO NOTIFY THAT DR. CULVER WILL BE IN CONTACT WITH HER.
--- NOTE | 2021-11-03 16:29 | NUR ---
SPOKE WITH HOSPICE SERVICE. . GAVE REPORT AND UPDATED ON PLAN OF CARE. THEY STATED THEY WILL GET INTO CONTACT WITH DAUGHTER LORENA REGARDING PLAN OF CARE.
--- NOTE | 2021-11-03 19:13 | NUR ---
GAVE REPORT TO JOHNNY CATALYST IMPREGNATOR RN FOR CONTINUITY OF CARE.
--- NOTE | 2021-11-03 19:40 | NUR ---
@1907 Change of shift report received from Sravani VAZQUEZ at the bedside. Later met pt awake alert follows command but disoriented, denies pain, reptitive word incoherent vitals signs stable afebrile,moves all eremities but weaker on the left side, oxygen 2lnc O2 sat 96%, support, education reorientation to thunit reminded her that she is still in the hospital, touch held her hands for a while, skin care and repositioned for comfort, Mittens restraints released skin checked, seen pt pulled her nasal cannula, attempted pulling the HD catheter on her right neck despite reminding her not to touch it. Will continue to monitor and treat as per care plan.
--- NOTE | 2021-11-03 20:08 | NUR ---
PAGED DR. MAIN TO CLARIFY REGARDING HIS MICROBIOLOGY ORDER FROM YESTERDAY BUT IT WAS DR. KOCH (OUTSIDE LABORER) ANSWER MY CALL AND HE SAID IT'S A BLOOD CULTURE ORDER X2; CARRIED OUT AND LAB (BENJA)WAS NOTIFIED ABOUT IT.
--- NOTE | 2021-11-03 20:30 | NUR ---
Assisted patient with he5r dinner at 55% tolerated well, pt's daughter visiting also at this time watching via closed window because pt on isolation COVID POSITIVE twice during this admission. Education on care plan to family also showed her labs trending in expected direction, mentioned to her pt's spivey urine output, pt's mental condition due to hx of dementia, she brought a zoroastrianism relic of [place], pt recognized it and she held it for a while. pt's daughter verbalized satisfaction and appreciation of pt's care.
[2021-11-03] MEDS: DOCUSATE SODIUM 100 MG GELCAP PO PRN (21:05)
[2021-11-03] MEDS: ACETAMINOPHEN 325 MG TAB PO PRN (21:05)
[2021-11-04] VITALS (13 sets, daily range): BP systolic 90–141; BP diastolic 24–89
[2021-11-04] MEDS: ALBUTEROL SULFATE/IPRATROPIU 3 ML SOL IH SCH ×4 (01:05→19:00)
--- NOTE | 2021-11-04 03:45 | NUR ---
Complete bed bath CHG tolerated well, skin care foam applied to sacrum area, heels elevated on pillows and pt repositioned for comfort.
[2021-11-04 04:46] LABS: ANION GAP 15.6 (8-16); CARBON DIOXIDE 26.1 mmol/L (21-32); CHLORIDE 101 mmol/L (98-107); CREATININE 2.9 mg/dL (0.6-1.3); GLUCOSE 93 mg/dL (74-106); POTASSIUM 4.7 mmol/L (3.5-5.1); SODIUM SERUM 138 mmol/L (136-145)
[2021-11-04 04:49] LABS: UREA NITROGEN, BLOOD 82 mg/dL (7-18)
--- NOTE | 2021-11-04 04:49 | NUR ---
Critical labs BUN 82 and Creatinine 2.8 trending in expected direction.
--- NOTE | 2021-11-04 07:15 | NUR ---
Change of shift report at the bedside to JULY RN for continuity of care as at this time pt awake alert confused vitals signs stable no sign of distress.
--- NOTE | 2021-11-04 07:30 | NUR ---
REPORT RECEIVED FROM FORM BUILDING SUPERVISOR. PATIENT STABLE
[2021-11-04 08:07] LABS: HEPATITIS A ANTIBODY IGM Negative (Negative); HEPATITIS B CORE AB TOTAL Negative (Negative); HEPATITIS B SURFACE ANTIBODY Non Reactive (.); HEPATITIS B SURFACE ANTIGEN Negative (Negative)
[2021-11-04] MEDS: EPOETIN ALFA-EPBX 10,000 UNITS/ML VIAL IV SCH (08:07)
[2021-11-04] MEDS: DEXAMETHASONE 4 MG/ML VIAL IVP SCH (08:07)
[2021-11-04] MEDS: PANTOPRAZOLE 40 MG INJ VIAL IVP SCH (08:08)
[2021-11-04] MEDS: MIDODRINE 5 MG TAB PO SCH ×3 (08:08→17:41)
[2021-11-04] MEDS: guaiFENesin 600 MG TABER PO SCH ×2 (08:08→21:47)
--- NOTE | 2021-11-04 08:30 | NUR ---
PATIENT AWAKE AND ALERT. ORIENTED TO PERSON ONLY. ABLE TO STATE NAME. REORIENTED TO PLACE AND TIME. HEART SOUNDS REGULAR. MONITOR SR WITH OCC PVC. RIGHT FEMORAL TLC WITH NS AT 5ML/HR. RIGHT IJ DIALYSIS CATHETER IN PLACE. ANTERIOR/LATERAL BREATH SOUNDS DIMINISHED BILATERALLY. O2 AT 2L/NC WITH SAO2 100%. INTERMITTENT COUGH, NONPRODUCTIVE. HYPOACTIVE BOWEL SOUNDS ALL QUAD. ABDOMEN SOFT, NONTENDER. PARIKH IN PLACE WITH YELLOW URINE. LEFT HEEL DTI WITH FOAM DRESSING IN PLACE. HEEL PROTECTORS ON BILATERALLY.
--- NOTE | 2021-11-04 09:00 | NUR ---
TOLERATED 70% OF BREAKFAST, TOTAL ASSIST.
--- NOTE | 2021-11-04 10:50 | NUR ---
DR. LEIVA HERE TO SEE PATIENT, UPDATED ON CHANGES AND STATUS. PATIENT PLACED ON RA. SAO2 92%.
--- NOTE | 2021-11-04 11:13 | NUR ---
(11/04/21) RD FOLLOW UP COMPLETED PLEASE REFER TO NUTRITION PROGRESS NOTE UNDER CARE ACTIVITY FOR ESTIMATED NUTRITION NEEDS. RD RECOMMENDATIONS: 1. CONTINUE RENAL MECHANICAL SOFT DIET TOLERATED 2. CONTINUE NEPRO BID PER RD PROTOCOL 3. MONITOR NUTRITION-RELATED LAB VALUES 4. RD TO FOLLOW-UP 3-5 DAYS, MODERATE RISK ANA NEAL MS, RDN
--- NOTE | 2021-11-04 12:00 | NUR ---
DR. SIM HERE TO SEE PATIENT. TUNNELED DIALYSIS CATHETER PLACEMENT PLANNED FOR Saturday11/06/21
--- NOTE | 2021-11-04 13:57 | NUR ---
SPOKE WITH DR. CHAPMAN REGARDING COVID ISOLATION. STATED SHE CAN BE REMOVED FROM THE DROPLET COVID PRECAUTIONS.
[2021-11-04] MEDS ORDERED: ALTEPLASE 2 MG VIAL MC ONE (17:10)
--- NOTE | 2021-11-04 17:50 | NUR ---
HEMODIALYSIS COMPLETE 1.5 HOURS. 300CC REMOVED. PATIENT TOLERATED WELL.
--- NOTE | 2021-11-04 19:13 | NUR ---
REPORT GIVEN TO RN. PATIENT STABLE.
--- NOTE | 2021-11-04 19:54 | NUR ---
RECEIVED REPORT FROM ALEXANDRO RN AND PT IS AWKE MUMBLING TO HERSELF. SHE IS STABLE ON ASSESSMENT. SHE DOESN'T RESPOND TO VERBAL STIMULI.OTHERWISE, VS ARE STABLE WITH GOOD PULSES THROUGHOUT.
[2021-11-05] VITALS: BP 131/63
[2021-11-05] MEDS: ALBUTEROL SULFATE/IPRATROPIU 3 ML SOL IH SCH ×4 (01:00→19:13)
[2021-11-05 04:00] VITALS: BP 111/45
[2021-11-05 05:29] LABS: ANION GAP 15.1 (8-16); CARBON DIOXIDE 26.7 mmol/L (21-32); CHLORIDE 103 mmol/L (98-107); GLUCOSE 95 mg/dL (74-106); POTASSIUM 4.8 mmol/L (3.5-5.1); SODIUM SERUM 140 mmol/L (136-145); UREA NITROGEN, BLOOD 60 mg/dL (7-18)
--- NOTE | 2021-11-05 07:25 | NUR ---
SBAR REPORT RECEIVED FROM RALEIGH VAZQUEZ, ALL CARES ASSUMED. PT RESTING IN BED WITH EYES CLOSED. BED IN LOW, LOCKED POSITION, CALL LIGHT WITHIN REACH.
[2021-11-05 08:00] VITALS: BP 98/53
[2021-11-05] MEDS: PANTOPRAZOLE 40 MG INJ VIAL IVP SCH (11:00)
[2021-11-05] MEDS: MIDODRINE 5 MG TAB PO SCH ×3 (11:00→17:00)
[2021-11-05] MEDS: DEXAMETHASONE 4 MG/ML VIAL IVP SCH (11:00)
[2021-11-05] MEDS: guaiFENesin 600 MG TABER PO SCH ×2 (11:00→21:40)
[2021-11-05] MEDS: FOAM DRESSING TP SCH (11:01)
[2021-11-05 12:00] VITALS: BP 113/51
[2021-11-05 16:00] VITALS: BP 123/58
--- NOTE | 2021-11-05 19:28 | NUR ---
SBAR REPORT GIVEN TO REPORT NIGHT RN, ALL CARES ENDORSED.
[2021-11-05 20:15] VITALS: BP 118/47
--- NOTE | 2021-11-05 20:15 | NUR ---
OPENING NOTE PT IN BED REPEATING "LET ME WAIT A MINUTE" PATIENT AWAKE AND ALERT BUT ORIENTED TO SELF ONLY. PT HAS RESTRAINT ON LEFT HAND TO PREVENT PT FROM PULLING OUT FEMORAL CATH. RIGHT TRIPLE LUMEN FEMORAL KVO WITH NS AT 5ML/HR. 2 OTHER PORTS FLUSHED BUT WILL NOT RETRACT WITH BLOOD. RIGHT IJ DIALYSIS CATHETER IN PLACE. PT HAS INTERMITTENT COUGH, NONPRODUCTIVE. HYPOACTIVE BOWEL SOUNDS ALL QUAD. ABDOMEN SOFT, NONTENDER. PARIKH IN PLACE WITH YELLOW URINE. LEFT AND RIGHT HEEL DTI WITH HEAL PROTECTORS IN PLACE
--- NOTE | 2021-11-05 20:30 | NUR ---
DIALYSIS NURSE CALLED DIALYSIS NURSE TO CONFIRM IF PT WAS ON THE SCHEDULE FOR DIALYSIS TOMORROW ON 11/06. DIALYSIS NURSED CONFIRMED THAT THE RIGHT IJ DIALYSIS PORT IS NOT WORKING.
--- NOTE | 2021-11-05 20:50 | NUR ---
DR CHIQUIS SIM IS HERE AND REPORTS HE WILL PLACE THE TUNNEL CATH IN PT ON SATURDAY AT 0830 AM.
--- NOTE | 2021-11-05 21:00 | NUR ---
DR CHIQUIS MINER [facility]
--- NOTE | 2021-11-05 21:20 | NUR ---
CALL PLACED TO DR ADELA SIM WILL PLACE TUNNEL CATH SATURDAY AT 0830AM. WANTED STAFF TO VERIFY WITH ID IF PT CAN BE TAKEN OFF OF ALL PRECAUTIONS. STATED PT CAN BE TAKEN OFF OF PRECAUTIONS FOR COVID AND FOR FLU.
[2021-11-05 21:59] LABS: PROTHROMBIN TIME 26.1 secs (10.8-13.4)
--- NOTE | 2021-11-05 23:00 | NUR ---
LABS LABS FOR SURGERY WERE COMPLETED AND ARE WNL
[2021-11-06] VITALS: BP 123/59
--- NOTE | 2021-11-06 | NUR ---
NPO PT PLACED ON NPO AFTER MIDNIGHT PER MD ORDER R/T PT HAVING SURGERY FOR TUNNEL CATH PLACEMENT IN THE AM
[2021-11-06] MEDS: ALBUTEROL SULFATE/IPRATROPIU 3 ML SOL IH SCH ×4 (01:44→18:56)
--- NOTE | 2021-11-06 02:00 | NUR ---
BOWEL MOVEMENT PT HAD BM AND WAS GIVEN COMPLETED BATH
--- NOTE | 2021-11-06 02:00 | NUR ---
CHG BATH PT GIVEN CHG BATH FOR SURGICAL PROCEDURE IN AM
[2021-11-06 04:00] VITALS: BP 131/64
[2021-11-06 05:10] LABS: BASOPHILS # (AUTO) 0.3 K/uL (0.00-0.22); BASOPHILS % (AUTO) 0.3 % (0.0-2.0); EOSINOPHILS # (AUTO) 0.1 K/uL (0-0.4); EOSINOPHILS % (AUTO) 0.1 % (0.0-4.0); HEMATOCRIT 23.9 % (36-48); HEMOGLOBIN 7.3 g/dL (12.0-16.0); LYMPHOCYTES # (AUTO) 37.6 K/uL (2.5-16.5); LYMPHOCYTES % (AUTO) 38.2 % (20.5-51.1); MEAN CORPUSCULAR HEMOGLOBIN 29 pg (27-31); MEAN CORPUSCULAR HGB CONC 31 g/dL (33-37); MEAN CORPUSCULAR VOLUME 94.5 fL (80-94); MONOCYTES # (AUTO) 6.6 K/uL (0.8-1.0); MONOCYTES % (AUTO) 6.7 % (1.7-9.3); NEUTROPHILS # (AUTO) 53.8 K/uL (1.8-7.7); NEUTROPHILS % (AUTO) 54.7 % (42.2-75.2); PLATELET COUNT (AUTO) 153 K/uL (140-450); RED BLOOD CELL COUNT(AUTO) 2.53 MIL/uL (4.20-5.40); RED CELL DISTRIBUTION WIDTH 13.5 % (11.6-13.7)
[2021-11-06 05:30] LABS: ANION GAP 14.5 (8-16); CARBON DIOXIDE 26.7 mmol/L (21-32); CHLORIDE 104 mmol/L (98-107); GLUCOSE 87 mg/dL (74-106); POTASSIUM 5.2 mmol/L (3.5-5.1); SODIUM SERUM 140 mmol/L (136-145)
[2021-11-06 05:31] LABS: WHITE BLOOD COUNT (AUTO) 98.4 K/uL (4.8-10.8)
[2021-11-06 05:32] LABS: UREA NITROGEN, BLOOD 61 mg/dL (7-18)
--- NOTE | 2021-11-06 06:30 | NUR ---
FAMILY CALLED DAUGHTER CALLED INFORM PT WILL BE TRANSFER TO [facility]. ALSO OBTAINED TRANSFUSION CONSENT FOR BLOOD IF NEEDED
--- NOTE | 2021-11-06 06:35 | NUR ---
TRANSFER PT TRANSFER BY THIS VEHICLE COST ENGINEER AND ANOTHER STAFF TO [facility]. PT PLACED ON TELE BOX 14 AND NURSE NOTIFIED. PT TRANSFERED WITH NO COMPLICATIONS AND VITAL ARE STABLE FOR THIS PT.
--- NOTE | 2021-11-06 07:20 | NUR ---
RECEIVED REPORT FROM NIGHT RN MATTY FOR CONTINUITY OF CARE. PT CONFUSED, PERRLA, ABLE TO TRACK. SR/SB ON MONITOR. TRIPLE LUMEN CENTRAL LINE TO RIGHT FEMORAL INFUSING NS AT 10ML/HR. RIGHT IJ MARYANN CATH IN PLACE. LUNG SOUNDS DIMINISHED. BOWEL SOUNDS ACTIVE. F/C TO GRAVITY DRAINING CLEAR YELLOW URINE. HEEL PROTECTORS IN PLACE. CALL LIGHT WITHIN REACH, BED IN LOWEST POSITION. STANDARD PRECAUTIONS IN PLACE PER ID MD.
--- NOTE | 2021-11-06 07:20 | NUR ---
REPORT REPORT GIVEN TO MARTHA
[2021-11-06 08:00] VITALS: BP 141/49
[2021-11-06] MEDS: PANTOPRAZOLE 40 MG INJ VIAL IVP SCH (09:02)
[2021-11-06] MEDS: DEXAMETHASONE 4 MG/ML VIAL IVP SCH (09:02)
[2021-11-06] MEDS ORDERED: LIDOCAINE MPF 1% 5 ML ONE (09:24)
[2021-11-06] MEDS ORDERED: BUPIVACAINE-MPF/EPI 0.25% 10 ML VIAL INJ ONE (09:25)
[2021-11-06] MEDS ORDERED: KETAMINE 500 MG/5 ML VIAL ONE (09:30)
--- NOTE | 2021-11-06 09:30 | NUR ---
PT WENT TO OR FOR REMOVAL OF R IJ MARYANN CATHETER REMOVAL AND PLACEMENT OF R IJ TUNNELED HD PERMACATHETER.
[2021-11-06] MEDS ORDERED: MIDAZOLAM 2 MG/2 ML VIAL ONE (09:31)
[2021-11-06] MEDS ORDERED: MORPHINE SULFATE 4 MG/ML SYR IV PRN (10:30)
[2021-11-06] MEDS: guaiFENesin 600 MG TABER PO SCH ×2 (11:32→20:47)
[2021-11-06] MEDS: MIDODRINE 5 MG TAB PO SCH ×4 (11:32→17:00)
[2021-11-06 12:00] VITALS: BP 177/98
--- NOTE | 2021-11-06 12:31 | NUR ---
HD NURSE AT BEDSIDE
[2021-11-06 16:00] VITALS: BP 148/55
--- NOTE | 2021-11-06 19:20 | NUR ---
ENDORSED REPORT TO VANDA KIRKLAND RN FOR CONTINUITY OF CARE.
--- NOTE | 2021-11-06 19:22 | NUR ---
RECEIVED PT ON BED, AAOX1, VERBALLY RESPONSIVE BUT CONFUSED, HX OF DEMENTIA, IVF INFUSING WELL AT 10ML/H VIA RT FEMORAL CVP LINE, DRESSING DRY AND INTACT, PARIKH CATHETER TO GRAVITY WITH CLEAR YELLOW OUTPUT, WITH RT HAND MITTEN IN PLACE DUE TO PULLING OUT OF MEDICAL LINES AND TUBES, WITH RT CHEST PERMACATH IN PLACE, DRESSING DRY AND INTACT, Y[place]A HEEL PROTECTORS IN PLACE SEC TO DTI, PER AM NURSE PT NOT IN COVID ISOLATION DUE TO BEING CLEARED BY DR CHAPMAN, SAFETY MEASURES IN PLACE, CALL LIGHT WITHIN REACH, FREQUENT ROUNDS WILL BE MADE.
[2021-11-06 20:00] VITALS: BP 101/81
--- NOTE | 2021-11-06 20:50 | NUR ---
DUE PO MED ADMINISTERED, PT FEED WITH APPLE SAUCE AND PUDDING, TOLERATED WELL, REPOSITIONED Q2H AND OFFLOAD PRESSURE AREAS, ALL NEEDS ANTICIPATED.
--- NOTE | 2021-11-06 23:33 | NUR ---
RECEIVED CRITICAL LAB RESULT OF PCR COVID POSITIVE RESULT, PT ALREADY POSITIVE SINCE ADMISSION ON 10/25/21, MAINTAINED ON DROPLET PRECAUTION.
[2021-11-07] VITALS: BP 103/85
--- NOTE | 2021-11-07 00:20 | NUR ---
SEEN PT SLEEPING, VISIBLE CHEST RISE AND FALL, NO SIGNS OF DISTRESS, CONTINUE TO MONITOR CLOSELY.
[2021-11-07] MEDS ORDERED: ALBUTEROL HFA MDI 90 MCG/ACTUATION 8 GM INH PRN (01:25)
--- NOTE | 2021-11-07 03:00 | NUR ---
ROUNDS MADE, SEEN PT AWAKE, NO SIGNS OF DISTRESS, PT REQUESTING FOR APPLE SAUCE, FED AND ABLE TO FINISH ONE CUP OF APPLE SAUCE, REPOSITIONED AND OFFLOAD PRESSURE AREAS, MONITORED CLOSELY.
[2021-11-07 04:00] VITALS: BP 100/70
[2021-11-07 05:38] LABS: BASOPHILS # (AUTO) 0.1 K/uL (0.00-0.22); BASOPHILS % (AUTO) 0.1 % (0.0-2.0); HEMATOCRIT 22.5 % (36-48); LYMPHOCYTES # (AUTO) 29.6 K/uL (2.5-16.5); LYMPHOCYTES % (AUTO) 40.6 % (20.5-51.1); MEAN CORPUSCULAR HEMOGLOBIN 29 pg (27-31); MEAN CORPUSCULAR HGB CONC 31 g/dL (33-37); MEAN CORPUSCULAR VOLUME 94.7 fL (80-94); MONOCYTES # (AUTO) 8.5 K/uL (0.8-1.0); MONOCYTES % (AUTO) 11.7 % (1.7-9.3); NEUTROPHILS # (AUTO) 34.6 K/uL (1.8-7.7); NEUTROPHILS % (AUTO) 47.6 % (42.2-75.2); PLATELET COUNT (AUTO) 129 K/uL (140-450); RED BLOOD CELL COUNT(AUTO) 2.38 MIL/uL (4.20-5.40); RED CELL DISTRIBUTION WIDTH 13.7 % (11.6-13.7)
[2021-11-07 05:44] LABS: CARBON DIOXIDE 26.5 mmol/L (21-32); CHLORIDE 104 mmol/L (98-107); CREATININE 1.4 mg/dL (0.6-1.3); GLUCOSE 91 mg/dL (74-106); POTASSIUM 3.5 mmol/L (3.5-5.1); SODIUM SERUM 141 mmol/L (136-145); UREA NITROGEN, BLOOD 29 mg/dL (7-18)
[2021-11-07 05:56] LABS: WHITE BLOOD COUNT (AUTO) 72.8 K/uL (4.8-10.8)
[2021-11-07 05:57] LABS: HEMOGLOBIN 6.9 g/dL (12.0-16.0)
--- NOTE | 2021-11-07 06:10 | NUR ---
CRITICAL LAB OF H/H OF 6.9/22.5, PAGED DR JUAREZ WITH NEW ORDER TO TRANSFUSE 1 UNIT PRBC, WILL ENDORSE TO AM SHIFT, PT SLEEPING, VISIBLE CHEST RISE AND FALL, NO DISTRESS NOTED.
--- NOTE | 2021-11-07 07:45 | NUR ---
RECEIVED REPORT FROM CAFETERIA MONITOR NURSEVANDA: PT ON DROPLET PRECAUTIONS, IN BED ASLEEP BUT AROUSED WITH MODERATE EFFORT--ALERT WHEN AROUSED AND ORIENTED X 1. PT IS BREATHING EFFORTLESSLY ON ROOM AIR. IV ACCESS IS RIGHT FEMORAL CENTRAL LINE WITH NS IN PROGRESS TO KEEP VEIN OPEN ONLY. PARIKH CATH DRAINING SMALL AMOUNT OF YELLOW URINE. PT SHOWS NO SIGNS OF DISTRESS OR PAIN. CALL LIGHT IS WITHIN REACH. PLAN OF CARE CONTINUES.
--- NOTE | 2021-11-07 07:46 | NUR ---
PT SLEEPING, EASILY AROUSABLE BUT DROWSY, NO SIGNS OF DISTRESS, REPORT GIVEN TO RN JEFF FOR CONTINUITY OF CARE.
[2021-11-07 08:00] VITALS: BP 118/56
[2021-11-07] MEDS: PANTOPRAZOLE 40 MG INJ VIAL IVP SCH (09:00)
[2021-11-07] MEDS: DEXAMETHASONE 4 MG/ML VIAL IVP SCH (09:00)
[2021-11-07] MEDS: guaiFENesin 600 MG TABER PO SCH ×2 (09:00→21:00)
[2021-11-07] MEDS: EPOETIN ALFA-EPBX 10,000 UNITS/ML VIAL IV SCH (09:00)
[2021-11-07] MEDS: MIDODRINE 5 MG TAB PO SCH ×3 (09:00→19:10)
[2021-11-07] MEDS ORDERED: SODIUM FERRIC GLUCONATE 125 MG in NACL 0.9% 100 ML IV SCH (10:00)
--- NOTE | 2021-11-07 11:31 | NUR ---
AM MEDS ADMIN ORDERED. DECADRON 6 MG IV ADMIN AFTER 4MG VIAL REMOVED FOR ADMIN AT 2 DIFFERENT TIMES AND 2 MG WASTED.
[2021-11-07 12:00] VITALS: BP 123/59
--- NOTE | 2021-11-07 12:00 | NUR ---
RECEIVED EARLIER CALL FROM KIMI IN LAB-BLOOD BANK WITH INFO THAT REQUEST FOR TYPE AND CROSS MATCH & PRBCS FOR PT HAS HAD TO BE SENT TO THE BLOOD BANK SO PRBCS WILL BE DELAYED. PER KIMI, BLOOD BANK WILL CALL AGAIN WHEN THE UNIT OF PRBCS BECOMES AVAILABLE. WATER SYSTEMS ENGINEER INFORMED.
--- NOTE | 2021-11-07 12:13 | NUR ---
PHYSICAL THERAPY CO-SIGN The Physical Therapy Progress Notes documented by Program Director have been reviewed. Reviewed/Co-Signed by: Renea Butt Documentation Done by: RACHEL FRIED PTA Addendum: 11/07/21 at 1213 by Renea Butt PT Amended: Links added.
--- NOTE | 2021-11-07 13:00 | NUR ---
HEELS KEPT IN HEEL PROTECTORS AND FEET KEPT UP ON PILLOW. FOAM DRESSING APPLIED ORDERED AND DOCUMENTED. PT DENIES PAIN AT HEELS.
--- NOTE | 2021-11-07 14:00 | NUR ---
PT ATTEMPTS TO REMOVE RIGHT FEMORAL LINE WHENEVER MITTEN RESTRAINT IS REMOVED. RESTRAINT REMOVED X 15 MINUTES WITH NURSE PRESENT TO DISTRACT PT. PT REQUEST AND TAKES SIPS OF FLUID. BREATHING EFFORTLESSLY ON ROOM AIR. SHOWS NO SIGNS OF PAIN.
[2021-11-07 16:00] VITALS: BP 118/51
--- NOTE | 2021-11-07 18:58 | NUR ---
RECEIVED CALL FROM BLOOD BANK THAT PT'S UNIT OF PRBC IS NOW AVAILABLE. WILL ENDORSE TO NIGHT NURSE.
[2021-11-07 20:00] VITALS: BP 159/56
--- NOTE | 2021-11-07 20:10 | NUR ---
NIGHT NURSEAGUEDA ABLE TO RECEIVE REPORT ON PT. ENDORSED TO NURSE RE AVAILABILITY OF PRBCS, PT FOR DIALYSIS ON 11/08/21. PT REMAINS ASYMPTOMATIC FOR COVID-19. TEMP AT 1600 SHOWED 99.1 BUT 98.4 WHEN RECHECKED. ZENA OF NS CONTINUES TO KEEP VEIN OPEN (10 ML/HR) AT R FEMORAL CENTRAL LINE. PT ALERT BUT CONFUSED. CALL LIGHT WITHIN REACH OF PT.
[2021-11-08] VITALS: BP 137/83
--- NOTE | 2021-11-08 01:03 | NUR ---
PATIENT AWAKE CONFUSE HAS WRIST RESTRAINTS ON SO PATIENT WANT PULL OUT FEMEROL LINE. PATIENT SINUS ON MONITOR TEMP 98.6. PATIENT HAS RIGHT FEMEROL LINE ALL LINE PATENT. PATIENT HAS RIGHT IJ NOT WORKING TO HAVE A RIGHT PERMA CATH PUT IN IN A.M. PATIENT RECEIVING 1 UNIT OF [facility] H/H WAS 6.9 HEMATERIC 22.5.DONOR #[id number] STARTED BLOOD AT 2350 TEMP98.6 15 MIN INTO BLOOD INFUSING TEMP 98.8
[2021-11-08 04:00] VITALS: BP 130/47
[2021-11-08 06:14] LABS: HEMATOCRIT 28.1 % (36-48); HEMOGLOBIN 8.9 g/dL (12.0-16.0); MEAN CORPUSCULAR HEMOGLOBIN 30 pg (27-31); MEAN CORPUSCULAR HGB CONC 32 g/dL (33-37); MEAN CORPUSCULAR VOLUME 94.2 fL (80-94); PLATELET COUNT (AUTO) 149 K/uL (140-450); RED BLOOD CELL COUNT(AUTO) 2.98 MIL/uL (4.20-5.40); RED CELL DISTRIBUTION WIDTH 13.7 % (11.6-13.7)
--- NOTE | 2021-11-08 06:51 | NUR ---
BLOOD END AT 0245 NO BLOOD REACTION
[2021-11-08 07:16] LABS: WHITE BLOOD COUNT (AUTO) 82.1 K/uL (4.8-10.8)
--- NOTE | 2021-11-08 07:30 | NUR ---
RECEIVED REPORT FROM AUTOMATION CONTROLS ENGINEER NURSE, FOR CONTINUITY OF CARE. POC DISCUSSED. PER DRS NOTES, PROCEDURE ON FOR PLACEMENT OF RIGHT IJ TUNNELED PERMACATH. PT HAS A RIGHT FEMORAL CENTRAL LINE. LEFT HEEL FOAM DRESSING. ON ROOM AIR, IN ISOLATION. PT ON TELE MONITOR SHOWING SINUS RAMONA AT 48, REPORTED PTS BASELINE. ALL SAFETY MEASURES IN PLACE, CALL LIGHT WITHIN REACH. WILL CONTINUE TO MONITOR.
[2021-11-08 08:00] VITALS: BP 148/74
[2021-11-08 08:08] LABS: TRANSFERRIN 244 mg/dL (149-313)
[2021-11-08 08:40] LABS: EOSINOPHILS % (MANUAL) 1 % (0-4); LYMPHOCYTES % (MANUAL) 43 % (20-46); MONOCYTES % (MANUAL) 8 % (5-12)
[2021-11-08] MEDS: MIDODRINE 5 MG TAB PO SCH ×3 (08:40→16:49)
[2021-11-08] MEDS: FOAM DRESSING TP SCH (09:26)
[2021-11-08] MEDS: PANTOPRAZOLE 40 MG INJ VIAL IVP SCH (09:27)
[2021-11-08] MEDS: guaiFENesin 600 MG TABER PO SCH ×2 (09:27→21:47)
[2021-11-08] MEDS: DEXAMETHASONE 4 MG/ML VIAL IVP SCH (09:28)
--- NOTE | 2021-11-08 09:30 | NUR ---
[facility], [facility]–1983 MEDICATION ADMINISTERED PER MD ORDER, PT TOLERATED ADMINISTRATION. PT A&OX0. RIGHT WRIST RESTRAINT IN PLACE, RELEASED FOR 15 MINUTES. NEURO CHECK COMPLETED. PT RIGHT IJ PERMA CATH INTACT AND PATENT. PT RIGHT FEMORAL TRIPLE LUMEN DRY AND INTACT, PATENT. RUNNING TKO. SALINE FLUSH COMPLETED. FLACC O. LUNG SOUNDS DIMINISHED. NO EDEMA NOTED. LEFT DTI NOTED ON HEEL, FOAM DRESSING DRY AND INTACT. HEEL PROTECTORS IN PLACE. +2 PEDAL PULSES. ALL SAFETY MEASURES IN PLACE, CALL LIGHT WITHIN REACH. WILL CONTINUE TO MONITOR.
[2021-11-08 10:30] LABS: FERRITIN 456 ng/mL (15 - 150)
--- NOTE | 2021-11-08 10:58 | NUR ---
PHYSICAL THERAPY CO-SIGN The Physical Therapy Progress Notes documented by Professor Of Education have been reviewed. Reviewed/Co-Signed by: Renea Butt Documentation Done by: RACHEL FRIED PTA Addendum: 11/08/21 at 1059 by Renea Butt PT Amended: Links added.
--- NOTE | 2021-11-08 11:05 | NUR ---
REASSESSMENT ON PT BLOOD PRESSURE, 132/56. PT IS STABLE ALL SAFETY MEASURES IN PLACE. CALL LIGHT WITHIN REACH. WILL CONTINUE TO MONITOR.
--- NOTE | 2021-11-08 11:28 | NUR ---
HD NURSE AT BEDSIDE. PT STABLE
[2021-11-08 12:00] VITALS: BP 141/90
--- NOTE | 2021-11-08 13:01 | NUR ---
SPOKE WITH MICHAELLE FROM HOSPICE, ANSWERED ALL QUESTIONS AND GAVE FULL REPORT. NUMBER FOR CASE MANAGEMENT AND UNIT NUMBER PROVIDED.
--- NOTE | 2021-11-08 14:30 | NUR ---
DIALYSIS NURSE REPORTED 800 CC REMOVED. PT STABLE WITH NO ACUTE S/S OF DISTRESS. ALL SAFETY MEASURES IN PLACE. CALL LIGHT WITHIN REACH. WILL CONTINUE TO MONITOR.
--- NOTE | 2021-11-08 15:15 | NUR ---
ROUNDED ON PT, PT STABLE, ALL SAFETY MEASURES IN PLACE. CALL LIGHT WITHIN REACH. WILL CONTINUE TO MONITOR.
[2021-11-08 16:00] VITALS: BP 146/86
--- NOTE | 2021-11-08 17:47 | NUR ---
FACILITIES SPECIALIST AT BEDSIDE ASSISTING PT WITH DINNER. ALL NEEDS ARE MET. PT IS STABLE. ALL SAFETY MEASURES IN PLACE. CALL LIGHT WITHIN REACH. WILL CONTINUE TO MONITOR.
--- NOTE | 2021-11-08 18:48 | NUR ---
ALL NEEDS HAVE BEEN MET THROUGHOUT THE SHIFT, PT IS STABLE. WILL BE ENDORSED TO MANAGEMENT ACCOUNTANT NURSE AT 1900. ALL SAFETY MEASURES IN PLACE, CALL LIGHT WITHIN REACH.
--- NOTE | 2021-11-08 19:30 | NUR ---
RECEIVED REPORT FROM DAY SHIFT NURSE, FOR CONTINUITY OF CARE. PT AWAKE IN BED, ON ROOM AIR, NO RESPIRATORY DISTRESS NOTED.R IJ TUNNELED PERMACATH IN PLACE.PT HAS A RIGHT FEMORAL CENTRAL LINE. LEFT HEEL FOAM DRESSING. ON ROOM AIR, ON DROPLET PRECAUTION. SR ON TELE 68, REPORTED PTS BASELINE. ALL SAFETY MEASURES IN PLACE, CALL LIGHT WITHIN REACH. WILL CONTINUE TO MONITOR.
[2021-11-08 20:00] VITALS: BP 127/77
--- NOTE | 2021-11-08 21:00 | NUR ---
SCHEDULED MEDICATIONS GIVEN. PT TOLERATED WELL. WILL CONTINUE TO MONITOR.
[2021-11-09] VITALS: BP 123/68
--- NOTE | 2021-11-09 01:51 | NUR ---
PT ASLEEP. NO RESPIRATORY DISTRESS NOTED. ALL PRECAUTION IN PLACE. WILL CONTINUE TO MONITOR.
[2021-11-09 04:00] VITALS: BP 135/69
--- NOTE | 2021-11-09 04:30 | NUR ---
PT CLEANED AND REPOSITIONED. PT TOLERATED WELL. ALL PRECAUTIONS IN PLACE. WILL CONTINUE TO MONITOR.
--- NOTE | 2021-11-09 07:15 | NUR ---
RECEIVED REPORT FROM FACILITY MANAGER NURSE FOR CONTINUITY OF CARE. PT ASLEEP IN BED. BREATHING SYMMETRICAL ON ROOM AIR. FLACC O. RIGHT FEMORAL 3 LUMEN CATH, ON TKO. RIJ PERMACATH IN PLACE. PARIKH CATHETER INTACT AND PATENT DRAINING YELLOW URINE. CALL LIGHT WITHIN REACH. ALL SAFETY MEASURES IN PLACE.
[2021-11-09 07:16] LABS: HEMOGLOBIN 8.3 g/dL (12.0-16.0); MEAN CORPUSCULAR HEMOGLOBIN 30 pg (27-31); MEAN CORPUSCULAR VOLUME 94.2 fL (80-94); RED BLOOD CELL COUNT(AUTO) 2.76 MIL/uL (4.20-5.40); WHITE BLOOD COUNT (AUTO) 62.9 K/uL (4.8-10.8)
[2021-11-09 07:17] LABS: MEAN CORPUSCULAR HGB CONC 32 g/dL (33-37); PLATELET COUNT (AUTO) 91 K/uL (140-450)
[2021-11-09 07:19] LABS: LYMPHOCYTES % (AUTO) 40.9 % (20.5-51.1)
[2021-11-09 07:20] LABS: BASOPHILS # (AUTO) 0.6 K/uL (0.00-0.22); BASOPHILS % (AUTO) 0.1 % (0.0-2.0); EOSINOPHILS # (AUTO) 0.1 K/uL (0-0.4); EOSINOPHILS % (AUTO) 0.1 % (0.0-4.0); LYMPHOCYTES # (AUTO) 25.8 K/uL (2.5-16.5); MONOCYTES # (AUTO) 6.5 K/uL (0.8-1.0); MONOCYTES % (AUTO) 9.9 % (1.7-9.3); NEUTROPHILS # (AUTO) 30.8 K/uL (1.8-7.7)
[2021-11-09 08:00] VITALS: BP 140/67
[2021-11-09] MEDS: PANTOPRAZOLE 40 MG INJ VIAL IVP SCH (08:52)
[2021-11-09] MEDS: DEXAMETHASONE 4 MG/ML VIAL IVP SCH (08:52)
[2021-11-09] MEDS: MIDODRINE 5 MG TAB PO SCH ×3 (08:52→16:55)
[2021-11-09] MEDS: guaiFENesin 600 MG TABER PO SCH ×2 (08:52→20:54)
--- NOTE | 2021-11-09 09:01 | NUR ---
SCHEDULED AM MEDICATIONS GIVEN ORDERED. MIDODRINE NOT GIVEN PT'S BP140/67, HEPARIN ALSO NOT GIVEN PLATELET IS 91.
[2021-11-09] MEDS: EPOETIN ALFA-EPBX 10,000 UNITS/ML VIAL IV SCH (10:33)
--- NOTE | 2021-11-09 11:45 | NUR ---
PT STATES SHE'S HUNGRY, GIVEN APPLESAUCE, TOLERATED WELL. NO C/O PAIN AT THIS TIME. FREQUENT ROUNDS DONE
[2021-11-09 12:00] VITALS: BP 129/73
--- NOTE | 2021-11-09 13:47 | NUR ---
11/09/21 RD FOLLOW UP COMPLETED PLEASE REFER TO NUTRITION ASSESSMENT UNDER CARE ACTIVITY FOR ESTIMATED NUTRITIONAL NEEDS. 1. CONTINUE WITH RENAL/ MECHANICAL SOFT DIET TOLERATED. 2. CONTINUE WITH NEPRO BID FOR NUTRITION SUPPORT. 3. RD TO FOLLOW-UP 3-5 DAYS, MODERATE RISK REVIEWED BY IGNACIA COLON RD
--- NOTE | 2021-11-09 14:23 | NUR ---
PT REMOVED DRESSING ON RIGHT NECK, SCANT AMOUNT OF BLOOD NOTED, NO ACTIVE BLEEDING. REINFORCED WITH DRESSING. WILL MONITOR.
[2021-11-09 14:25] LABS: ANION GAP 16.8 (8-16); CARBON DIOXIDE 22.5 mmol/L (21-32); CHLORIDE 104 mmol/L (98-107); CREATININE 1.7 mg/dL (0.6-1.3); GLUCOSE 154 mg/dL (74-106); POTASSIUM 4.3 mmol/L (3.5-5.1); SODIUM SERUM 139 mmol/L (136-145); UREA NITROGEN, BLOOD 38 mg/dL (7-18)
--- NOTE | 2021-11-09 15:40 | NUR ---
PT AWAKE IN BED, CONFUSED. BREATHING SYMMETRICAL ON ROOM AIR. NO C/O PAIN, FLACC O.
[2021-11-09 16:30] VITALS: BP 141/76
--- NOTE | 2021-11-09 17:35 | NUR ---
NO C/O PAIN. FREQUENT ROUNDS DONE. BREATHING SYMMETRICAL ON ROOM AIR.
--- NOTE | 2021-11-09 19:26 | NUR ---
ENDORSED PT TO HOURLY SHIFT NURSE FOR CONTINUITY OF CARE.
[2021-11-09 20:00] VITALS: BP 145/75
--- NOTE | 2021-11-09 20:00 | NUR ---
OPENING NOTE PT IN BED, WHEN ENTERING ROOM PT IS REPEATING "LET ME THINK ABOUT IT". PT AX1 ABLE TO STATE HER NAME ONLY.PT ON R/A PT HAS RIGHT HAND SOFT WRIST RESTRAINT AND CIRCULATION CHECKED. PT HAS RIGHT FEMORAL 3 LUMEN CATH, ON TKO. RIJ PERMACATH IN PLACE. PARIKH CATHETER INTACT AND PATENT DRAINING DEREK COLOR URINE. ALL SAFETY MEASURES IN PLACE. PT REMAINS ON DROPLET ISOLATION PRECAUTIONS.
[2021-11-10] VITALS: BP 148/71
[2021-11-10 04:00] VITALS: BP 142/78
[2021-11-10 05:48] LABS: BASOPHILS # (AUTO) 0.3 K/uL (0.00-0.22); BASOPHILS % (AUTO) 0.4 % (0.0-2.0); EOSINOPHILS # (AUTO) 0.1 K/uL (0-0.4); EOSINOPHILS % (AUTO) 0.1 % (0.0-4.0); HEMOGLOBIN 8.5 g/dL (12.0-16.0); LYMPHOCYTES % (AUTO) 39.7 % (20.5-51.1); MEAN CORPUSCULAR HEMOGLOBIN 30 pg (27-31); MEAN CORPUSCULAR HGB CONC 32 g/dL (33-37); MEAN CORPUSCULAR VOLUME 95.3 fL (80-94); MONOCYTES # (AUTO) 8.1 K/uL (0.8-1.0); MONOCYTES % (AUTO) 12.4 % (1.7-9.3); NEUTROPHILS % (AUTO) 47.4 % (42.2-75.2); PLATELET COUNT (AUTO) 96 K/uL (140-450); RED BLOOD CELL COUNT(AUTO) 2.83 MIL/uL (4.20-5.40); RED CELL DISTRIBUTION WIDTH 14.8 % (11.6-13.7)
[2021-11-10 06:03] LABS: WHITE BLOOD COUNT (AUTO) 65.5 K/uL (4.8-10.8)
--- NOTE | 2021-11-10 07:11 | NUR ---
RECEIVED REPORT FROM MATERIAL COORDINATOR NURSE FOR CONTINUITY OF CARE. PT AWAKE IN BED, CONFUSED, ABLE TO MAKE NEEDS KNOWN. BREATHING SYMMETRICAL ON ROOM AIR. NO C/O PAIN AT THIS TIME. RIGHT FEMORAL 3 LUMEN ON TKO. RUC PERMACATH, NO BLEEDING NOTED. ALL SAFETY MEASURES IN PLACE.
[2021-11-10 08:00] VITALS: BP 133/79
[2021-11-10] MEDS: DEXAMETHASONE 4 MG/ML VIAL IVP SCH (08:24)
[2021-11-10] MEDS: guaiFENesin 600 MG TABER PO SCH (08:24)
[2021-11-10] MEDS: PANTOPRAZOLE 40 MG INJ VIAL IVP SCH (08:24)
[2021-11-10] MEDS: MIDODRINE 5 MG TAB PO SCH ×2 (08:25→12:20)
--- NOTE | 2021-11-10 08:25 | NUR ---
SCHEDULED AM MEDICATIONS GIVEN ORDERED. HEPARIN NOT GIVEN PLATELET IS 96, MIDODRINE ALSO NOT GIVEN BP133/79. NO C/O PAIN. PT CONFUSED. PARIKH CATHETER INTACT DRAINING YELLOW URINE
--- NOTE | 2021-11-10 08:59 | NUR ---
WOUND CARE RE-EVALUATION NOTE: WOUND ASSESSMENT DONE, NO NEW DISCOVERY. PT. IS AWAKE, HOB ELEVATED, FEED PT. BREAKFAST, DENY PAIN DISCOMFORT.SOFT HAND MITTEN CHANGED, PT. BITE ON IT.WET AND SOILING. BILATERAL HEEL DTI SKIN INTACT WITH FOAM DRESSING IN PLACE. -RIGHT HEEL DTI 2.5X2CM 100% MAROON, MUSHY, CONG-WOUND BLANCHABLE REDNESS WITH SKIN INTACT -LEFT HEEL DTI 3X3CM, 100% MAROON, MUSHY, CONG-WOUND BLANCHABLE REDNESS, MUSHY, SKIN INTACT
--- NOTE | 2021-11-10 10:15 | NUR ---
RECEIVED CALL FROM [facility] SPOKE WITH RONAL, PT'S DAUGHTER WANT PT TO BE ON HOSPICE AND IF POSSIBLE TO DISCHARGE TODAY. PT ALREADY HAS DISCHARGE ORDER IN PLACE SINCE 2 DAYS AGO, MADE AWARE THAT FAMILY APPEALED DISCHARGE YESTERDAY AND CALL WAS TRANSFERRED TO THREAD TRIMMER. Addendum: 11/10/21 at 1030 by Vivian Kee RN ALSO MADE AWARE THAT PT HAS SCHEDULED DIALYSIS TODAY. DIALYSIS NURSE AWARE AND WILL DIALYZE PT NEXT.
--- NOTE | 2021-11-10 11:40 | NUR ---
PT RECEIVING HD AT THIS TIME.
[2021-11-10 12:19] VITALS: BP 154/72
--- NOTE | 2021-11-10 12:20 | NUR ---
MIDODRINE NOT GIVEN, PT'S BP154/72
--- NOTE | 2021-11-10 14:26 | NUR ---
HEMODIALYSIS DONE, 500CC OUT.
[2021-11-10 16:00] VITALS: BP 119/83
--- NOTE | 2021-11-10 16:40 | NUR ---
RIGHT FEMORAL 3 LUMEN CATH REMOVED ORDERED, CATHETER INTACT, NO BLEEDING NOTED.
--- NOTE | 2021-11-10 16:55 | NUR ---
PT DISCHARGED TO HOME, PICKED UP BY [facility] VIA [facility], WITH PARIKH CATHETER AND RIJ PERMACATH. BREATHING SYMMETRICAL ON ROOM AIR. FLACC O. DISCHARGE PAPERWORKS GIVEN.
== END 2021-11-10 17:09 | disposition hospice, home (50) | DRG 871 ==
LOC: MED 09:12 → MTU 12:25 → MIC 15:07 → MTU 11-06 06:55
PROVIDERS: ADMIT Student in an Organized Health Care Education/Training Program; ATTEND Student in an Organized Health Care Education/Training Program
PROC: 06HY33Z Insertion of Infusion Device into Lower Vein, Percutaneous Approach (ICD-10-PCS; 2021-10-25)
PROC: B54BZZA Ultrasonography of Right Lower Extremity Veins, Guidance (ICD-10-PCS; 2021-10-25)
PROC: 5A0935A Assistance with Respiratory Ventilation, Less than 24 Consecutive Hours, High Flow/Velocity Cannula (ICD-10-PCS; 2021-10-25)
PROC: 5A0935A Assistance with Respiratory Ventilation, Less than 24 Consecutive Hours, High Flow/Velocity Cannula (ICD-10-PCS; 2021-10-26)
PROC: XW033F5 Introduction of Other New Technology Therapeutic Substance into Peripheral Vein, Percutaneous Approach, New Technology Group 5 (ICD-10-PCS; 2021-10-26)
PROC: 5A0935A Assistance with Respiratory Ventilation, Less than 24 Consecutive Hours, High Flow/Velocity Cannula (ICD-10-PCS; 2021-10-27)
PROC: 5A1D70Z Performance of Urinary Filtration, Intermittent, Less than 6 Hours Per Day (ICD-10-PCS; 2021-10-28)
PROC: 02HV33Z Insertion of Infusion Device into Superior Vena Cava, Percutaneous Approach (ICD-10-PCS; 2021-10-28)
PROC: B548ZZA Ultrasonography of Superior Vena Cava, Guidance (ICD-10-PCS; 2021-10-28)
PROC: 5A0935A Assistance with Respiratory Ventilation, Less than 24 Consecutive Hours, High Flow/Velocity Cannula (ICD-10-PCS; 2021-10-28)
PROC: 5A1D80Z Performance of Urinary Filtration, Prolonged Intermittent, 6-18 hours Per Day (ICD-10-PCS; 2021-10-29)
PROC: 5A0935A Assistance with Respiratory Ventilation, Less than 24 Consecutive Hours, High Flow/Velocity Cannula (ICD-10-PCS; 2021-10-29)
PROC: 5A1D70Z Performance of Urinary Filtration, Intermittent, Less than 6 Hours Per Day (ICD-10-PCS; 2021-10-30)
PROC: 5A0935A Assistance with Respiratory Ventilation, Less than 24 Consecutive Hours, High Flow/Velocity Cannula (ICD-10-PCS; 2021-10-30)
PROC: 5A0935A Assistance with Respiratory Ventilation, Less than 24 Consecutive Hours, High Flow/Velocity Cannula (ICD-10-PCS; 2021-10-31)
PROC: 5A0935A Assistance with Respiratory Ventilation, Less than 24 Consecutive Hours, High Flow/Velocity Cannula (ICD-10-PCS; 2021-11-01)
PROC: 5A1D70Z Performance of Urinary Filtration, Intermittent, Less than 6 Hours Per Day (ICD-10-PCS; 2021-11-02)
PROC: 5A1D70Z Performance of Urinary Filtration, Intermittent, Less than 6 Hours Per Day (ICD-10-PCS; principal; 2021-11-03)
PROC: 5A1D70Z Performance of Urinary Filtration, Intermittent, Less than 6 Hours Per Day (ICD-10-PCS; 2021-11-04)
PROC: 5A1D70Z Performance of Urinary Filtration, Intermittent, Less than 6 Hours Per Day (ICD-10-PCS; 2021-11-05)
PROC: 02PYX3Z Removal of Infusion Device from Great Vessel, External Approach (ICD-10-PCS; 2021-11-06)
PROC: 0JH63XZ Insertion of Tunneled Vascular Access Device into Chest Subcutaneous Tissue and Fascia, Percutaneous Approach (ICD-10-PCS; 2021-11-06)
PROC: 02HV33Z Insertion of Infusion Device into Superior Vena Cava, Percutaneous Approach (ICD-10-PCS; 2021-11-06)
PROC: B518ZZA Fluoroscopy of Superior Vena Cava, Guidance (ICD-10-PCS; 2021-11-06)
PROC: 5A1D70Z Performance of Urinary Filtration, Intermittent, Less than 6 Hours Per Day (ICD-10-PCS; 2021-11-07)
PROC: 30233N1 Transfusion of Nonautologous Red Blood Cells into Peripheral Vein, Percutaneous Approach (ICD-10-PCS; 2021-11-07)
PROC: 5A1D70Z Performance of Urinary Filtration, Intermittent, Less than 6 Hours Per Day (ICD-10-PCS; 2021-11-09)
DX: A41.9 Sepsis, unspecified organism (principal); J10.08 Influenza due to other identified influenza virus with other specified pneumonia; U07.1 COVID-19; J96.01 Acute respiratory failure with hypoxia; R65.21 Severe sepsis with septic shock; J12.82 Pneumonia due to coronavirus disease 2019; J15.211 Pneumonia due to Methicillin susceptible Staphylococcus aureus; C91.10 Chronic lymphocytic leukemia of B-cell type not having achieved remission; N17.9 Acute kidney failure, unspecified; E46 Unspecified protein-calorie malnutrition; E03.9 Hypothyroidism, unspecified; E78.5 Hyperlipidemia, unspecified; I12.9 Hypertensive chronic kidney disease with stage 1 through stage 4 chronic kidney disease, or unspecified chronic kidney disease; N18.9 Chronic kidney disease, unspecified; G30.9 Alzheimer's disease, unspecified; F02.80 Dementia in other diseases classified elsewhere, unspecified severity, without behavioral disturbance, psychotic disturbance, mood disturbance, and anxiety; L89.90 Pressure ulcer of unspecified site, unspecified stage; Z88.2 Allergy status to sulfonamides; Z88.8 Allergy status to other drugs, medicaments and biological substances; Z79.899 Other long term (current) drug therapy; Z87.891 Personal history of nicotine dependence; Z68.23 Body mass index [BMI] 23.0-23.9, adult
CPT/HCPCS: 36415; 36556; 36600; 70450; 71045; 76770; 80048; 80053; 80202; 81001; 82550; 82570; 82607; 82728; 82746; 82803; 82948; 83540; 83605; 83615; 83735; 83880; 84100; 84156; 84300; 84484; 85025; 85045; 85379; 85384; 85610; 85730; 86140; 86704; 86706; 86708; 86709; 86803; 86886; 86900; 86901; 86920; 87040; 87070; 87081; 87086; 87186; 87205; 87340; 87420; 87635-QW; 89220; 90935; 92526; 93005; 94640; 96361; 96365; 96375; 97110; 97112; 97163-GP; 97530; 99291; C9113; J1100; J1644; J1885; J2001; J2250; J2270; J2405; J2543; J2916; J2997; J3370; J3490; J7030; J7060; P9016; P9046; Q0092; Q5106; Q9967